=== PATIENT | male | born 1960 | race Caucasian/White ===

== ENCOUNTER 2024-12-17 14:28 | Outpatient (OUT) | payer MEDICARE, SELFPAY ==
--- NOTE | 2024-12-17 15:39 | P.CN_ITS ---
Consult Note: HPI Data of Consult Patient: new to practice Consult date: 12/17/24 Requesting Physician: Loyda Ariza MD Primary Care Provider: BENI BURT Consult Narrative Reason for consult: low back, right leg pain Narrative: 64yom who presents for evaluation. notes longstanding low back history, but recently has been significantly exacerbated. has tried various modalities, including a 6 week provider directed home exercise course, without benefit. uses tylenol 4000mg daily, with some benefit. also taking prednisone 5mg for RA. old imaging shows extensive degenerative changes and spondylosis. previously had lumbar rfa, which provided significant benefit. cc:: CC: Loyda Ariza MD Review of Systems ROS Status of ROS 10 or more systems reviewed and unremark able except as noted in history and below Exam Narrative Exam Narrative: Psych-alert and oriented x 3. Attentive and appropriate, constitutionally normal, displays normal mood and affect per situation. There are no obvious deficits in memory, reasoning, or intellect.? Skin-no obvious rashes, bruising, erythema noted to the patient's area of pain.? Extremities- extremities are warm with minimal edema and palpable pulses. Lumbar-tenderness to palpation noted in the lumbar spine and paraspinal musculature. Pain is elicited with flexion, extension, and lateral rotation of the lumbar spine. Range of motion is diminished with these motions. Facet loading maneuvers are positive. Strength-noted to be unremarkable with the exception of decreased strength rated at 4 out of 5 in right quadriceps femoris, anterior tibialis. Sensory-no notable sensory deficits in the bilateral lower extremities to touch or pinprick in all dermatomal distributions with the exception to decreased sensation to the right L4, 5 dermatomal distribution Coordination remains intact.? Gait remains non-antalgic. Assessment and Plan Assessment and Plan (1) Lumbar stenosis with neurogenic claudication: (2) Lumbar spondylosis: Plan 64yom who presents for evaluation. failed conservative measures, as noted. imaging reviewed, as noted. given symptoms and old imaging, would like to update lumbar mri without contrast. he is in agreement. meds reviewed, uds obtained. will prescribe tramadol 50mg tid prn. follow up after imaging.
== END 2024-12-17 14:29 | disposition home or self-care (01) ==
PROVIDERS: PCP Internal Medicine; Visit Provider Anesthesiology
DX: M48.062 Spinal stenosis, lumbar region with neurogenic claudication (principal); M47.816 Spondylosis without myelopathy or radiculopathy, lumbar region
CPT/HCPCS: G0463

== ENCOUNTER 2024-12-26 09:22 | Outpatient (OUT) | payer MEDICARE, SELFPAY ==
--- NOTE | 2024-12-26 | MR_ITS ---
[address] [address] Patient Name: TOM HENRIQUEZ MRN: [id number] date: 1960 Sex: M Assigned Patient Location: MRI Current Patient Location: PM Accession/Order Number: [id number] Exam Date: 12/26/2024 14:51 Report Date: 12/26/2024 16:21 At the request of: SELINA ROSSI MD Procedure: MR lumbar spine wo con EXAMINATION: MRI LUMBAR SPINE WITHOUT IV CONTRAST CLINICAL HISTORY: Chronic back pain radiating into right leg for 3 months COMPARISON: None TECHNIQUE: Multiecho imaging was performed in the sagittal and axial planes without contrast administration. FINDINGS: Vertebral heights appear maintained. Presumed hemangioma L1 vertebral body. Diffuse disc desiccation. Spinal cord terminates in normal position without abnormal cord signal. No paraspinal mass. Visualized retroperitoneum demonstrates no acute process. At L1-L2: No posterior disc pathology. No neural canal or foraminal stenosis. At L2-L3: No posterior disc pathology. No neural canal or foraminal stenosis. At L3-L4: No posterior disc pathology. No neural canal or foraminal stenosis. At L4-L5: Mild broad-based disc bulge is present malignant flavum hypertrophy and facet joint degenerative changes causing mild canal and bilateral neural foraminal stenosis. At L5-S1: Diffuse broad-based disc bulge eccentric towards the right causing mild canal and severe right-sided neural foraminal stenosis. MR/MR lumbar spine wo con IMPRESSION: Multilevel degenerative disc disease as described above, worst at L5-S1 with severe right-sided neural foraminal stenosis. Impression dictated by: Dennys Torres Jr. DMeghna 12/26/2024 4:21 PM Dictation Location: [place] [address] Electronically authenticated by: [id number] Y Date: 12/26/2024 16:21
== END 2024-12-26 09:23 | disposition home or self-care (01) ==
LOC: MRI 09:23
PROVIDERS: PCP Internal Medicine; Visit Provider Anesthesiology
DX: M48.062 Spinal stenosis, lumbar region with neurogenic claudication (principal); M51.369 Other intervertebral disc degeneration, lumbar region without mention of lumbar back pain or lower extremity pain
CPT/HCPCS: 72148

== ENCOUNTER 2025-01-16 09:27 | Outpatient (OUT) | payer MEDICARE, SELFPAY ==
--- OUTSIDE RECORDS SUMMARY | 2025-01-16 09:30 | XMS_ITS | Encounter Summary ---
Author Organization [email or web address] Address [id number] [address] [place] [address] Care Team Providers Care Airborne Mission Systems Superintendent Name Role Phone Mitchel Henderson MD Primary Care Provider [phone] Reason for Visit * Reason Comments Med Refill Encounter Details Date Type Department Care Team (Late st Contact Info) Description 01/17/2024 Refill [facility] [address] [place] [address] 1 [place] [address] Mitchel Henderson MD [address] [place] [address], 1 [place], [place] [phone] Social History Tobacco Use Types Packs/Day Years Used Date Smoking Tobacco: Every Day Cigarettes Smokeless Tobacco: Never Alcohol Use Standard Drinks/Week Comments Yes 0 (1 standard drink = 0.6 oz pur e alcohol) occassional Social Connection and Isolation Panel [NHANES] A nswer Date Recorded In a typical week, how many times do you talk on the phone with family, friends, or neighbors? Once a week 09/25/2022 How often do you get together with friends or re latives? Once a week 09/25/2022 How often do you attend alevism or presybeterian serv ices? Never 09/25/2022 Do you belong to any clubs o r organizations such as alevism groups, unions, fraternal or athletic groups, or school groups? No 09/25/2022 How often do you attend meet ings of the clubs or organizations you belong to? Never 09/25/2022 Are you , , di vorced, , never , or living with a partner? 09/25/2022 AUDIT-C Answer Date Recorded Q1: How often do you have a drink containing alc ohol? 2-4 times a month 09/25/2022 Q2: How many drinks containi ng alcohol do you have on a typical day when you are drinking? 3 or 4 09/25/2022 Q3: How often do you have si x or more drinks on one occasion? Monthly 09/25/2022 Overall Financial Resource Strain (CARDIA) Answe r Date Recorded How hard is it for you to pa y for the very basics like food, housing, medical care, and heating? Somewhat hard 09/25/2022 PHQ-2 Answer Date Recorded Total Score 8 02/28/2023 [facility] [place] of Occupat ional Health - Occupational Stress Questionnaire Answer Date Recorded Do you feel stress - tense, restless, nervous, or anxious, or unable to sleep at night because your mind is troubled all the time - these days? Only a little 09/25/2022 Exercise Vital Sign Answer Date Recorde d On average, how many days pe r week do you engage in moderate to strenuous exercise (like a brisk walk)? Patient declined On average, how many minutes do you engage in exercise at this level? Patient declined 09/25/2022 PRAPARE - Transportation Answer Date Re corded In the past 12 months, has l ack of transportation kept you from medical appointments or from getting medications? No 11/2022 In the past 12 months, has l ack of transportation kept you from meetings, work, or from getting things needed for daily living? No 09/25/2022 Housing Instability Answer Date Recorde d Are you worried or concerned that in the next two months you may not have stable housing that you own, rent or stay in as a part of a household? No 09/25/2022 Childcare Answer Date Recorded Do problems getting child ca re make it difficult for you to work or study? No 09/25/2022 Employment Answer Date Recorded Do you need help finding a l ocal career center and/or a training program? No 09/25/2022 Hunger Screening Answer Date Recorded Within the past 12 months we worried whether our food would run out before we got money to buy more. Never True 02/28/2023 Within the past 12 months th e food we bought just didn't last and we didn't have money to get more. Never True 02/28/2023 Purpose - Life Answer Date Recorded I have a purpose and direction in my life. Agree 09/11/2021 Education Answer Date Recorded What is the highest level of school you have completed or the highest degree you have received? 11th grade 09/11/2021 Sex and Gender Information Value Date Recorded Sex Assigned at Male 10/14/2019 7:09 AM EST Legal Sex Male 1:03 PM EDT Gender Identity Male 10/14/2019 7:09 AM EST Sexual Orientation Straight 10/14/2019 7: 09 AM EST documented as of this encounter Miscellaneous Notes * Telephone Encounter - Faiza Benz CMA - 01/17/2024 4:09 PM EDT duplicate documented in this encounter Plan of Treatment Upcoming Encounters Date Type Department Care Team (Late st Contact Info) Description 04/05/2025 9:30 AM EDT Office Visit [facility] [address] [place] [address] [address] [place] [phone] Mitchel Henderson MD [address] [place] [address], [address] [place], [place] [id number] documented as of this encounter Visit Diagnoses Not on filedocumented in this encounter Additional Health Concerns Assessment Noted Time PHQ-9 Depression Total Score: 8 02/29/20 23 8:00 AM EDT documented as of this encounter Care Teams Airborne Mission Systems Superintendent Relationship Specialty Start Date End Date Mitchel Henderson MD [address] [place] [address], [address] [place] [address] PCP - General Pediatrics 09/18/21 documented as of this encounter
--- OUTSIDE RECORDS SUMMARY | 2025-01-16 09:30 | XMS_ITS | Clinical Summary ---
Author Organization [facility] Address [id number] [address] [place] [address] Care Team Providers Care Salary Manager Name Role Phone Mitchel Henderson MD Primary Care Provider [phone] Allergies Active Allergy Reactions Criticality Noted Date Comments Atorvastatin muscle cramps Medium 12/10/2024 Bupropion Hcl Rash Low 09/25/2012 Buspirone 07/06/2019 Can't remember Methotrexate Other (See Comments) ,GI Disturbance 09/25/2012 [place] spaced out dizziness Oxycodone 05/28/2020 Tunnel vision Venlafaxine 10/17/2019 Medications etanercept (ENBREL) 50 mg/mL (1 mL) injection Inject 1 mL (50 mg total) under the skin once a week. Active blood sugar diagnostic (glucose blood) strip 1 strip by other route every morning before breakfast. In Vitro strip Active MEN'S MULTI-VITAMIN ORAL Take by mouth in the morning. Active hydroCHLOROthiaz anrel (HYDRODIURIL) 12.5 mg tablet Take 1 tablet (12.5 mg total) by mouth daily. 90 tablet 3 4 Active lisinopriL (PRINIVIL,ZESTRI L) 30 mg tablet Take 1 tablet (30 mg total) by mouth in the morning. 90 tablet 3 4 Active metFORMIN XR (GLUCOPHAGE XR) 500 mg 24 hr tablet Take 1 tablet (500 mg total) by mouth daily with breakfast. 90 tablet 3 4 Active albuterol (PROVENTIL HFA;VENTOLIN HFA) 90 mcg/actuation inhalerIndicatio ns:Chronic bronchitis, unspecified chronic bronchitis type (CMS-HCC) 2 puffs by mouth every 6 hours per wheezing and shortness of breath 54 g 3 4 Active umeclidinium (INCRUSE ELLIPTA) 62.5 mcg/actuation blister with deviceIndication s:Chronic bronchitis, unspecified chronic bronchitis type ([facility]) Inhale 1 puff in the morning. 30 each 6 4 Active cyclobenzaprine (FLEXERIL) 5 mg tablet Take 1 tablet (5 mg total) by mouth as needed. 5 Active ergocalciferol (DRISDOL) 1,250 mcg (50,000 unit) capsule TAKE 1 CAPSULE BY MOUTH ON MONDAYS AND THURSDAYS FOR 8 WEEKS THEN DECREASE TO ONE WEEKLY THEREAFTER Active leflunomide (ARAVA) 20 mg tablet TAKE 1 TABLET BY MOUTH DAILY WITH FOOD. DO NOT TAKE IF ON ANTIBIOTICS OR . 5 Active varenicline tartrate (CHANTIX BRINDA) 0.5 mg (11)- 1 mg (42) tabletIndication s:Cigarette nicotine dependence without complication Take 0.5 mg one daily on days 1-3 and 0.5 mg twice daily on days 4-7. Then 1 mg twice daily for a total of 12 weeks. 53 tablet 5 Active Active Problems Problem Noted Date Diagnosed Date Chronic middle ear effusion, bilateral 0 Bilateral hearing loss 09/26/2019 Hypertension COPD (chronic obstructive pulmonary disease) Overview (02/26/2022): scheduled for PFT 05/14/2020 Rheumatoid arthritis Hyperlipidemia Type 2 diabetes mellitus wit hout complication, without long-term current use of insulin Sialadenitis Encounters Date Type Department Care Team Description 12/27/2024 Orders Only [facility] [address] [place] [phone] External, Scanning Provider 12/10/2024 10:45 AM EDT Office Visit [facility] [address] [place] [phone] Mitchel Henderson MD Rheumatoid arthritis ([facility]) (Primary Dx); Type 2 diabetes mellitus without complication, without long-term current use of insulin ([facility]); Myalgia, multiple sites; Cigarette nicotine dependence without complication 12/08/2024 Travel from Last 3 Months Immunizations Immunization Administration Dates Next Due Influenza, Im Trivalent Preservative 08/08/2015, 06/02/2012,07/12/2011 Influenza, Injectable, quadr ivalent (PF) 06/09/2021,06/11/2020,09/04/2018,2017,07/01/2017 PPD Test 05/09/2024 Pneumococcal Conjugate 13-Valent 02/03/2015 Tdap 06/02/2012 Family History Medical History Relation Name Comments Arthritis Father katie Asthma Father katie Emphysema Father katie Arthritis Mother hayden Diabetes Mother hayden Hypertension Mother hayden Stroke Mother hayden Vasculitis Mother hayden Vision loss Mother hayden Arthritis Sister sera Relation Name Status Comments Father katie Mother hayden Sister sera Alive Social History Tobacco Use Types Packs/Day Years Used Date Smoking Tobacco: Every Day Cigarettes 1.6 46.4 Started: 08/22/1978 Smokeless Tobacco: Never Tobacco Cessation:Ready to Q uit: Not Asked; Counseling Given: Not Answered Alcohol Use Standard Drinks/Week Comments Yes 0 [...] week 09/25/2022 How often do you attend congregation or latter-day serv ices? Never 09/25/2022 Do you belong to any clubs o r organizations such as congregation groups, unions, fraternal or athletic groups, or [...] like food, housing, medical care, and heating? Not very hard 05/05/2024 PHQ-2 Answer Date Recorded Total Score 4 03/01/2024 [facility] of Occupat ional [facility] - Occupational Stress Questionnaire Answer Date Recorded [...] medical appointments or from getting medications? No 04/22 In the past 12 months, has l ack of transportation kept you from meetings, work, or from getting things needed for daily living? No 05/05/2024 Housing Instability Answer Date Recorde d Are you worried or concerned that in the next two months you may not have stable housing that you own, rent or stay in as a part of a household? No 05/05/2024 Childcare Answer Date Recorded Do problems getting child ca re make it difficult for you to work or study? No 09/25/2022 Employment Answer Date Recorded Do you need help finding a l al career center and/or a training program? No 09/25/2022 Hunger Screening Answer Date Recorded Within the past 12 months we worried whether our food would run out before we got money to buy more. Never True 05/05/2024 Within the past 12 months th e food we bought just didn't last and we didn't have money to get more. Never True 05/05/2024 Purpose - Life Answer Date Recorded I [...] Orientation Straight 10/14/2019 7: 09 AM EST Last Filed Vital Signs Vital Sign Reading Time Taken Comments Blood Pressure 174/92 12/10/2024 10:38 AM EDT Pulse 90 12/10/2024 10:38 AM EDT Temperature 37.6 C (99.7 F) 10/14/2020 9:07 AM EST Respiratory Rate 22 10/14/2020 10:15 AM EST Oxygen Saturation 92% 10/14/2020 10:15 AM EST Inhaled Oxygen Concentration - - Weight 99.2 kg (218 lb 9.6 oz) 12/10/2024 10:38 AM EDT Height 170.2 cm (5' 7 ) 03/01/2024 8:46 AM EDT Body Mass Index 34.24 03/01/2024 8:46 AM EDT Plan of Treatment Upcoming Encounters Date Type Department Care Team (Late st Contact Info) Description 04/05/2025 9:30 AM EDT Office Visit [facility] [address] [place] [phone] Mitchel Henderson MD [address] [place] [address], [address] [place] [phone] Health Maintenance Due Date Last Done Comments Diabetic Ophthalmology Exam 1960 Tobacco Counseling 1960 Adult BMI Follow Up Plan 1978 Diabetic Foot Exam 1978 Zoster (Shingles) Vaccine (1 of 2) 2010 DTaP,Tdap and Td Vaccines (2 - Td or Tdap) 06/02/2022 06/02/2012 COVID-19 Vaccine (2023-2 5 season) 2024 06/19/2021, 11/28/2020, 10/31/2020 Depression Screening 03/01/2025 03/01/2024 Influenza Vaccine 04/22/2025 06/09/2021, , 09/04/2018, Additional history exists Adult BMI Screening 12/10/2025 12/10/2024 Tobacco Screening 12/10/2025 12/10/2024 Medical Devices Implanted Type Area Auto Air Conditioning Mechanic Device Identifier Shelf Expiration Date Model / Serial / Lot Anch Sut Kntls Healicoil Rg St - Sna - [id number] Implanted:Qt y: 1 on 05/28/2020 by Curry Pradhan DO at [facility] [place] Left: Shoulder [employer] 02/05/2023 [id number] / [id number] / [id number] Mesh Srg Clgn Rcnst Scfld Med - Sna - [id number] Implanted:Qt y: 1 on 05/28/2020 by Curry Pradhan DO at [facility] Mesh Left: Shoulder [employer] 10/17/2022 [id number] / NA / [id number] Anch Bn 3 W Ascp Dlv Sys - Sna - [id number] Implanted:Qt y: 1 on 05/28/2020 by Curry Pradhan DO at [facility] Other Implant Left: Shoulder [employer] 08/06/2022 [id number] / NA / [id number] Anch Sut Tndn Rgnrt - Sna - [id number] Implanted:Qt y: 1 on 05/28/2020 by Curry Pradhan DO at [facility] Other Implant Left: Shoulder [employer] [id number] 09/28/2022 [id number] / NA / [id number] Ultratape Blue, 38 Implanted:Qt y: 1 on 05/28/2020 by Curry Pradhan DO at [facility] Left: Shoulder [employer] [id number] 02/22/2024 [id number] / [id number] / [id number] Procedures Procedure Name Priority Date/Time Associated Diagnosis Comments MR LUMBAR SPINE WO CONT Routine 12/26/2024 from Last 3 Months Results * MR lumbar spine without contrast (12/26/2024) Anatomical Region Laterality Modality MSK, Neuro, Spine, L-spine, Spine Covera N/A Magnetic Resonance 12/26/2024 us Scanning Provider External IMG MRI ORDERABLES Fi nal Result from Last 3 Months Insurance [employer] MEDICARE Care Teams Salary Manager Relationship Specialty Start Date End Date Mitchel Henderson MD [address] [place] [address], [address] [place] [address] PCP - General Pediatrics 09/18/21
--- OUTSIDE RECORDS SUMMARY | 2025-01-16 09:30 | XMS_ITS | Encounter Summary ---
Author Organization [employer] Address [id number] [address] [place] [address] Care Team Providers Care Answering Service Agent Name Role Phone Mitchel Henderson MD Primary Care Provider [phone] Reason for Visit * Reason Comments Med Refill Encounter Details Date Type Department Care Team (Late st Contact Info) Description 10/18/2023 Refill [facility] [address] [place] [address] 1 [place] [address] Mitchel Henderson MD [address] [place] [address], 1 [place], [place] [phone] Social History Tobacco Use Types Packs/Day Years [...] week 09/25/2022 How often do you attend yazidism or mormonism serv ices? Never 09/25/2022 Do you belong to any clubs o r organizations such as yazidism groups, unions, fraternal or athletic groups, or [...] Answer Date Recorded Total Score 8 02/28/2023 [facility] [place] of Occupat ional Health - Occupational Stress [...] Telephone Encounter - Faiza Benz CMA - 10/18/2023 4:17 PM EST duplicate documented in this encounter Plan of Treatment Upcoming Encounters Date Type Department Care Team (Late st Contact Info) Description 04/05/2025 9:30 AM EDT Office Visit [facility] [address] [place] [address] [address] [place] [phone] Mitchel Henderson MD [address] [place] [address], [address] [place] [address] documented as of this encounter Visit Diagnoses Not on filedocumented in this encounter Additional Health Concerns Assessment Noted Time PHQ-9 Depression Total Score: 8 02/29/20 23 8:00 AM EDT documented as of this encounter Care Teams Answering Service Agent Relationship Specialty Start Date End Date Mitchel Henderson MD [address] [place] [address], [address] [place] [address] PCP - General Pediatrics 09/18/21 documented as of this encounter
--- OUTSIDE RECORDS SUMMARY | 2025-01-16 09:30 | XMS_ITS | Encounter Summary ---
Author Organization [facility] Address [address] [place] [id number] Care Team Providers Care Frame Bander Name Role Phone Mitchel Henderson MD Primary Care Provider + Source Comments In the event this information is protected by the Federal Confidentiality of Alcohol and Drug AbusePatient Records regulations: The Federal rules restrict any use of the information to criminally investigate or prosecute any alcohol or drug abuse patient.[facility] Encounter Details Date Type Department Care Team (Late st Contact Info) Description 04/24/2024 Patient Msg Rheumatology [address] [place], [place] [phone] Rosy Raya MD [address] [place], [place] [phone] Appointment Request Social History Tobacco Use Types Packs/Day Years Used Date Smoking Tobacco: Every Day Smokeless Tobacco: Never Comments:down to 3-4 cigaret reinaldo a day Alcohol Use Standard Drinks/Week Comments Not Asked 0 (1 standard drink = 0.6 oz pur e alcohol) PHQ-2 Answer Date Recorded PHQ-2 score 1 05/06/2023 Area Deprivation Index Answer Date Homer rded National Score (1-100), lower number is lower ri 63 05/09/2023 State Score (1-10), lower number is lower risk 4 05/09/2023 Data from: https://www.neighborhoodatlas.medicine.[facility].edu/. Last address used for calculation [address] 05/09/2023 Sex and Gender Information Value Date Recorded Sex Assigned at Not on file Legal Sex Male 11:05 AM EST Gender Identity Not on file Sexual Orientation Not on file documented as of this encounter Functional Status * Are you deaf or do you have serious difficulty hearing? Answer Date of Assessment Author No 02/13/2015 2:15 PM EDT Estela Kwan Ma * Are you blind or do you have serious difficulty seeing, even when wearing glasses? Answer Date of Assessment Author No 02/13/2015 2:15 PM EDT Estela Kwan Ma * Do you have serious difficulty walking or climbing stairs? Answer Date of Assessment Author Yes 02/13/2015 2:15 PM EDT Estela Kwan Ma * Do you have difficulty dressing or bathing? Answer Date of Assessment Author No 02/13/2015 2:15 PM EDT Esteal Kwan Ma * Because of a physical, mental, or emotional condition, do you have difficulty doing errands alone such as visiting a doctor's office or shopping? Answer Date of Assessment Author No 02/13/2015 2:15 PM EDT Estela Kwan Ma documented as of this encounter Mental Status * Because of a physical, mental, or emotional condition, do you have serious difficulty concentrating, remembering, or making decisions? Answer Entry Date Author No 02/13/2015 2:15 PM EDT Estela Kwan Ma documented in this encounter Plan of Treatment Not on file documented as of this encounter Visit Diagnoses Not on filedocumented in this encounter Care Teams Frame Bander Relationship Specialty Start Date End Date Mitchel Henderson MD [address] [place] [address], 1 [place] [address] PCP - General Internal Medicine 11/30/21 documented as of this encounter
--- OUTSIDE RECORDS SUMMARY | 2025-01-16 09:30 | XMS_ITS | Encounter Summary ---
Author Organization [facility] Address [address] [place] [address] Care Team Providers Care Scheduler Maintenance Name Role Phone Mitchel Henderson MD Primary Care Provider + Source Comments In the event this information is protected by the Federal Confidentiality of Alcohol and Drug AbusePatient Records regulations: The Federal rules restrict any use of the information to criminally investigate or prosecute any alcohol or drug abuse patient.[facility] Encounter Details Date Type Department Care Team (Late st Contact Info) Description 04/24/2024 Patient Msg Rheumatology [address] [place], [place] [phone] Rosy Raya MD [address] [place], [place] [phone] Appointment Request Social History Tobacco Use Types [...] is lower risk 4 05/09/2023 Data from: https://www.neighborhoodatlas.medicine.[facility].edu/. Last address used for calculation [address] [...] 2:15 PM EDT Estela Kwan Ma * Because of a physical, [...] on filedocumented in this encounter Care Teams Scheduler Maintenance Relationship Specialty Start Date End Date Mitchel Henderson MD [address] [place] [address], 1 [place] [address] PCP - General Internal Medicine 11/30/21 documented as of this encounter
--- OUTSIDE RECORDS SUMMARY | 2025-01-16 09:30 | XMS_ITS | Encounter Summary ---
Author Organization [employer] [facility] [employer] Address [id number] [address] [place] [address] Care Team Providers Care Pulp Mill Operator Name Role Phone Mitchel Henderson MD Primary Care Provider [phone] Reason for Visit * Reason Comments Med Refill Encounter Details Date Type Department Care Team (Late st Contact Info) Description 03/23/2024 Refill [facility] [address] [place] [address] 1 [place] [address] Mitchel Henderson MD [address] [place] [address], [address] [place], [place] [address] Social History Tobacco Use Types Packs/Day Years [...] week 09/25/2022 How often do you attend jehovah's witness or anabaptist serv ices? Never 09/25/2022 Do you belong to any clubs o r organizations such as jehovah's witness groups, unions, fraternal or athletic groups, or [...] 09/25/2022 PHQ-2 Answer Date Recorded Total Score 4 03/01/2024 [facility] of Occupat ional Health - Occupational Stress [...] got money to buy more. Never True 03/01/2024 Within the past 12 months th e food we bought just didn't last and we didn't have money to get more. Never True 03/01/2024 Purpose - Life Answer Date Recorded I [...] Telephone Encounter - Faiza Benz CMA - 03/23/2024 11:12 AM EDT Too soon to refill documented in this encounter Plan of Treatment Upcoming Encounters Date Type Department Care Team (Late st Contact Info) Description 04/05/2025 9:30 AM EDT Office Visit [facility] [address] [place] [address] [address] [place] [phone] Mitchel Henderson MD [address] [place] [address], [address] [place], [place] [phone] documented as of this encounter Visit Diagnoses Not on filedocumented in this encounter Additional Health Concerns Assessment Noted Time PHQ-9 Depression Total Score: 4 03/01/20 24 8:00 AM EDT documented as of this encounter Care Teams Pulp Mill Operator Relationship Specialty Start Date End Date Mitchel Henderson MD [address] [place] [address], [address] [place] [address] PCP - General Pediatrics 09/18/21 documented as of this encounter
--- OUTSIDE RECORDS SUMMARY | 2025-01-16 09:30 | XMS_ITS | Encounter Summary ---
Author Organization [facility] Address [id number] [address] [place] [address] Care Team Providers Care Auriculotherapist Name Role Phone Mitchel Henderson MD Primary Care Provider [phone] Encounter Details Date Type Department Care Team (Late st Contact Info) Description 12/27/2024 Orders Only [facility] [address] [place] [address] External, Scanning Provider Social History Tobacco Use Types Packs/Day Years Used Date Smoking Tobacco: Every Day Cigarettes 1.6 46.4 Started: 08/22/1978 Smokeless Tobacco: Never Alcohol Use Standard Drinks/Week [...] week 09/25/2022 How often do you attend orthodoxy or church serv ices? Never 09/25/2022 Do you belong to any clubs o r organizations such as orthodoxy groups, unions, fraternal or athletic groups, or [...] Answer Date Recorded Total Score 4 03/01/2024 [facility] of Occupat ional Health - Occupational Stress [...] Recorded Do you need help finding a [facility] career center and/or a training program? No [...] AM EST documented as of this encounter Plan of Treatment Upcoming Encounters Date Type Department Care Team (Late st Contact Info) Description 04/05/2025 9:30 AM EDT Office Visit [facility] [address] [place] [address] [address] [place] [phone] Mitchel Henderson MD [address] [place] [address], [address] [place] [address] documented as of this encounter Procedures Procedure Name Priority Date/Time Associated Diagnosis Comments MR LUMBAR SPINE WO CONT Routine 12/26/2024 documented in this encounter Results * MR lumbar spine without contrast (12/26/2024) Anatomical Region Laterality Modality MSK, Neuro, Spine, L-spine, Spine Covera N/A Magnetic Resonance 12/26/2024 us Scanning Provider External IMG MRI ORDERABLES Fi nal Result documented in this encounter Visit Diagnoses Not on filedocumented in this encounter Additional Health Concerns Assessment Noted Time PHQ-9 Depression Total Score: 4 03/01/20 24 8:00 AM EDT documented as of this encounter Care Teams Auriculotherapist Relationship Specialty Start Date End Date Mitchel Henderson MD [address] [place] [address], [address] [place] [address] PCP - General Pediatrics 09/18/21 documented as of this encounter
--- OUTSIDE RECORDS SUMMARY | 2025-01-16 09:30 | XMS_ITS | Clinical Summary ---
Author Organization [facility] Address [address] [place] [address] Care Team Providers Care Order Make Up Clerk Name Role Phone Mitchel Henderson MD Primary Care Provider [phone] Allergies Active Allergy Reactions Criticality Noted Date Comments Bupropion Rash Low 09/25/2012 Other Reaction(s): hives Buspirone 09/25/2012 Other Reaction(s): Unknown Can't remember Methotrexate GI intolerance,Unknown 09/25/2012 Other Reaction(s): Other (See Comments) Pearsall spaced out dizziness dizziness Oxycodone 05/28/2020 Tunnel vision Venlafaxine 09/25/2012 Other Reaction(s): Other: See Comments unknown Medications albuterol HFA 90 mcg/act inhaler Inhale 2 puffs every 6 (six) hours if needed. 02/28/2023 Active atorvastatin (Lipitor) 20 MG tablet 1 (one) time each day at the same time. Active cyclobenzaprine (Flexeril) 5 MG tablet Take 5 mg by mouth as needed at bedtime. Active Jardiance 10 MG Take one(1) tablet daily. 03/08/2023 Active hydroCHLOROthiaz arnel (HYDRODiuril) 25 MG tablet 1 (one) time each day at the same time. Active lisinopril 30 MG tablet Take 30 mg by mouth in the morning. 02/28/2023 Active etanercept (Enbrel) 50 MG/ML injection Inject under the skin. Active Active Problems Problem Noted Date Diagnosed Date Hyperlipidemia 06/15/2023 COPD (chronic obstructive pulmonary disease) Overview (06/15/2023): scheduled for PFT 05/14/2020 Rheumatoid arthritis 06/15/2023 Type 2 diabetes mellitus wit hout complication, without long-term current use of insulin 06/15/2023 Cigarette nicotine dependence without complicati on 03/17/2017 Essential hypertension 10/30/2015 Hearing loss 06/20/2015 Immunizations Immunization Administration Dates Next Due Influenza, injectable, quadr ivalent, preservative free 06/09/2021,06/11/2020,09/04/2018,07/12,07/01/2017 Influenza, seasonal, injectable 08/08/2015,06/02,07/12/2011 Pneumococcal Conjugate PCV 13 02/03/2015 Pneumococcal Polysaccharide PPSV23 07/02/2019 Tdap 06/02/2012 Family History Medical History Relation Name Comments Diabetes Mother Hypertension Mother Osteoarthritis Mother Stroke Mother Diabetes Sibling Heart disease Sibling Hypertension Sibling Relation Name Status Comments Father Mother Sibling Social History Tobacco Use Types Packs/Day Years Used Date Smoking Tobacco: Every Day Cigarettes 0.5 15 Smokeless Tobacco: Never Tobacco Cessation:Ready to Q uit: Not Asked; Counseling Given: Not Answered Alcohol Use Standard Drinks/Week Comments Yes 0 (1 standard drink = 0.6 oz pur e alcohol) Sex and Gender Information Value Date Recorded Sex Assigned at Male 06/13/2023 10:45 AM EDT Legal Sex Male 6:39 PM EDT Gender Identity Male 06/13/2023 10:45 AM EDT Sexual Orientation Straight 06/13/2023 10 :45 AM EDT Last Filed Vital Signs Vital Sign Reading Time Taken Comments Blood Pressure 176/95 11/17/2022 12:00 PM EDT Pulse - - Temperature - - Respiratory Rate - - Oxygen Saturation - - Inhaled Oxygen Concentration - - Weight 98.4 kg (217 lb) 06/16/2023 9:02 AM EDT Height 171.5 cm (5' 7.5 ) 06/16/2023 9:02 AM EDT Body Mass Index 33.49 06/16/2023 9:02 AM EDT Plan of Treatment Health Maintenance Due Date Last Done Comments CT Colonography 1960 Colonoscopy 1960 Colorectal Cancer Screening 1960 FIT-DNA 1960 FIT 1960 FOBT 1960 Sigmoidoscopy 1960 Influenza Vaccine (Season Ended) 2025 06/09/2021, 06/11/2020, 09/04/2018, Additional history exists Insurance [employer] MED[employer]ARE Care Teams Order Make Up Clerk Relationship Specialty Start Date End Date Mitchel Henderson MD PCP - General Family Medicine 06/15/23
--- OUTSIDE RECORDS SUMMARY | 2025-01-16 09:30 | XMS_ITS | Encounter Summary ---
Author Organization [facility] Address [address] [place] [address] Care Team Providers Care Field Services Manager Name Role Phone Mitchel Henderson MD Primary Care Provider [phone] Encounter Details Date Type Department Care Team (Late st Contact Info) Description 09/01/2023 Abstract [facility] [address] [place] [id number] Magalys Hahn NP Social History Tobacco Use Types Packs/Day Years [...] Orientation Straight 06/13/2023 10 :45 AM EDT documented as of this encounter Plan of Treatment Not on file documented as of this encounter Visit Diagnoses Not on filedocumented in this encounter Care Teams Field Services Manager Relationship Specialty Start Date End Date Mitchel Henderson MD PCP - General Family Medicine 06/15/23 documented as of this encounter
--- OUTSIDE RECORDS SUMMARY | 2025-01-16 09:30 | XMS_ITS | Encounter Summary ---
Author Organization [employer] Address [facility] [id number] [address] [place] [address] Care Team Providers Care Circular Distributor Name Role Phone Mitchel Henderson MD Primary Care Provider [phone] Reason for Visit * Reason Comments Med Refill Encounter Details Date Type Department Care Team (Late st Contact Info) Description 03/26/2024 Refill [facility] [address] [place] [address] 1 [place] [address] Mitchel Henderson MD [address] [place] [address], [address] [place], [place] [phone] Chronic bronchitis, unspecified chronic bronchitis type ([facility]-HCC) Social History Tobacco Use Types Packs/Day Years Used Date Smoking Tobacco: Every Day Cigarettes 1.6 46.4 Started: 08/1978 Smokeless Tobacco: Never Alcohol Use Standard Drinks/Week [...] week 09/25/2022 How often do you attend yarsanism or mormon serv ices? Never 09/25/2022 Do you belong to any clubs o r organizations such as yarsanism groups, unions, fraternal or athletic groups, or [...] Answer Date Recorded Total Score 4 03/01/2024 [facility] of Occupat ional Health - Occupational [...] Recorded Do you need help finding a [facility] career center and/or a training program? No [...] Telephone Encounter - Faiza Benz CMA - 03/26/2024 11:26 AM EDT duplicate documented in this encounter Plan of Treatment Upcoming Encounters Date Type Department Care Team (Late st Contact Info) Description 04/05/2025 9:30 AM EDT Office Visit [facility] [address] [place] [address] [address] [place] [address] Mitchel Henderson MD [address] [place] [address], [address] [place], [place] [phone] documented as of this encounter Visit Diagnoses Diagnosis Chronic bronchitis, unspecified chronic bronchitis type ([facility]-HCC) documented in this encounter Additional Health Concerns Assessment Noted Time PHQ-9 Depression Total Score: 4 03/01/20 24 8:00 AM EDT documented as of this encounter Care Teams Circular Distributor Relationship Specialty Start Date End Date Mitchel Henderson MD [address] [place] [address], [address] [place], [place] [phone] PCP - General Pediatrics 09/18/21 documented as of this encounter
--- OUTSIDE RECORDS SUMMARY | 2025-01-16 09:30 | XMS_ITS | Encounter Summary ---
Author Organization [facility] Address [address] [place] [address] Care Team Providers Care Manager Public Name Role Phone Mitchel Henderson MD Primary Care Provider + Source Comments In the event this information is protected by the Federal Confidentiality of Alcohol and Drug AbusePatient Records regulations: The Federal rules restrict any use of the information to criminally investigate or prosecute any alcohol or drug abuse patient.[facility] Reason for Visit * Reason Comments Refill Request Encounter Details Date Type Department Care Team (Late st Contact Info) Description 11/13/2024 Refill Rheumatology [address] [place] [address] Rosy Raya MD [address] [place] [address] Refill Request Social History Tobacco Use Types Packs/Day Years Used Date Smoking Tobacco: Every Day Smokeless Tobacco: Never Comments:down to 3-4 cigaret reinaldo a day Alcohol Use Standard Drinks/Week Comments Not Asked 0 (1 standard drink = 0.6 oz pur e alcohol) PHQ-2 Answer Date Recorded PHQ-2 score 2 11/13/2024 Area Deprivation Index Answer Date Homer rded National Score (1-100), lower number is lower ri 63 05/09/2023 State Score (1-10), lower number is lower risk 4 05/09/2023 Data from: https://www.neighborhoodatlas.medicine.[facility]/. Last address used for calculation [address] 05/09/2023 Sex and Gender Information [...] Date Author No 02/13/2015 2:15 PM EDT Esteal Kwan Ma documented in this encounter Miscellaneous Notes * Telephone Encounter - Melina Diaz - 11/22/2024 7:26 AM EDT Mr. Gutiérrez completed the requested labs on 11/19/24. Melina ROSE November 22, 2024 7:26 AM * Telephone Encounter - Henna Mixon - 11/15/2024 10:36 AM EDT Called and left voicemail for patient to schedule labs Mychart sent * Telephone Encounter - Rosy Raya MD - 11/14/2024 10:52 PM EDT Please call and schedule nonfasting labs this month. Temporary medication refilled Thank you. Patient's request for medication is as follows: Requested Prescriptions Pending Prescriptions Disp Refills ??? leflunomide (ARAVA) 20 mg tablet [Pharmacy Med Name: LEFLUNOMIDE 20MG TABLETS] 90 tablet 3 Sig: TAKE 1 TABLET BY MOUTH DAILY WITH FOOD. DO NOT TAKE IF ON ANTIBIOTICS OR . Prescription(s) as above. Please process accordingly. Rosy Raya MD * Telephone Encounter - Leslee Lizama MA - 11/13/2024 8:14 AM EDT Pharmacy electronically requests the following refill(s) Requested Prescriptions Pending Prescriptions Disp Refills leflunomide (ARAVA) 20 mg tablet [Pharmacy Med Name: LEFLUNOMIDE 20MG TABLETS] 90 tablet 3 Sig: TAKE 1 TABLET BY MOUTH DAILY WITH FOOD. DO NOT TAKE IF ON ANTIBIOTICS OR . Leslee Lizama MA Most recent Rheumatology visit: 04/26/2024 (with Rosy Raya) Last Bone Density on file: 04/18/2023 Rheumatology Care Team: None on file Recent Office Visits - This Specialty 04/26/2024 Rheumatoid arthritis of multiple sites without organ or system involvement with positiverheumatoid factor (HCC) Rheumatology Rosy Raya MD 11/17/2023 Rheumatoid arthritis of multiple sites without organ or system involvement with positiverheumatoid factor (HCC) Rheumatology Rosy Raya MD 05/09/2023 Rheumatoid arthritis of multiple sites without organ or system involvement with positiverheumatoid factor (HCC) Rheumatology Nilda Giron, TOOL WORKER.REPEAT CHIEF Upcoming Rheumatology Appointments - Next 365 Days Visit Type Date Time Department [facility] 11/19/2024 12:40 PM [facility] Y[facility] CBC: None on file in the last 6 months Vitamin D: None on file in the last 6 months LFT: None on file in the last 6 months Hepatic Function: Creatinine: None on file in the last 6 months ESR/CRP: None on file in the last 6 months Uric Acid: None on file in the last 6 months Open Standing (Multiple Instance) Lab Orders None Open Future (Single Instance) Lab Orders Expected Expires Ordered BLOOD TB SCREEN [SQINFTBP] 11/17/23 11/16/24 11/17/23 Auth. provider: Rosy Raya MD Assoc. diagnoses: Screening-pulmonary TB COMPREHENSIVE METABOLIC PANEL [SQCMP] 07/29/24 04/29/25 04/29/24 Auth. provider: Rosy Raya MD Assoc. diagnoses: Elevated LFTs COMPLETE BLOOD COUNT [SQCBC] 07/29/24 04/29/25 04/29/24 Auth. provider: Rosy Raya MD Assoc. diagnoses: Anemia of chronic disease SEDIMENTATION RATE, WESTERGREN [SQWSR] 07/29/24 04/29/25 04/29/24 Auth. provider: Rosy Raya MD Assoc. diagnoses: Elevated sed rate, Elevated C-reactive protein (CRP) C-REACTIVE PROTEIN [SQCRP] 07/29/24 04/29/25 04/29/24 Auth. provider: Rosy Raya MD Assoc. diagnoses: Elevated sed rate, Elevated C-reactive protein (CRP) VITAMIN D 25 HYDROXY [SQVITD] 07/29/24 04/29/25 04/29/24 Auth. provider: Rosy Raya MD Assoc. diagnoses: Vitamin D deficiency documented in this encounter Plan of Treatment Not on file documented as of this encounter Visit Diagnoses Diagnosis Rheumatoid arthritis of multiple sites without organ or system involvement with positive rheumatoid factor (HCC) documented in this encounter Care Teams Manager Public Relationship Specialty Start Date End Date Mitchel Henderson MD [address] [place] [address], [place] [address] PCP - General Internal Medicine 11/30/21 documented as of this encounter
--- OUTSIDE RECORDS SUMMARY | 2025-01-16 09:30 | XMS_ITS | Encounter Summary ---
Author Organization [facility] Address [address] [place] [address] Care Team Providers Care Optics Manufacturing Technician Name Role Phone Mitchel Henderson MD Primary Care Provider + Source Comments In the event this information is protected by the Federal Confidentiality of Alcohol and Drug AbusePatient Records regulations: The Federal rules restrict any use of the information to criminally investigate or prosecute any alcohol or drug abuse patient.[facility] Encounter Details Date Type Department Care Team (Late st Contact Info) Description 03/19/2024 Patient Msg Urology [address] [place] [address] Provider, Soren Hill to reach you Social History Tobacco Use Types Packs/Day Years Used Date Smoking Tobacco: Every Day Smokeless Tobacco: Never Comments:down to 3-4 cigaret reinaldo a day Alcohol Use Standard Drinks/Week Comments Not Asked 0 (1 standard drink = 0.6 oz pur e alcohol) PHQ-2 Answer Date Recorded PHQ-2 score 1 05/06/2023 Area Deprivation Index Answer Date Homer rded National Score (1-100), lower number is lower ri sk 63 05/09/2023 State Score (1-10), lower number is lower risk 4 05/09/2023 Data from: https://www.neighborhoodatlas.medicine.[facility]/. Last address used for calculation [address] [...] on filedocumented in this encounter Care Teams Optics Manufacturing Technician Relationship Specialty Start Date End Date Mitchel Henderson MD [address] [place] [address], [place] [address] PCP - General Internal Medicine 11/30/21 documented as of this encounter
--- OUTSIDE RECORDS SUMMARY | 2025-01-16 09:30 | XMS_ITS | Encounter Summary ---
Author Organization [facility] Address [address] [place] [address] Care Team Providers Care Rack Pusher Name Role Phone Mitchel Henderson MD Primary Care Provider + Source Comments In the event this information is protected by the Federal Confidentiality of Alcohol and Drug AbusePatient Records regulations: The Federal rules restrict any use of the information to criminally investigate or prosecute any alcohol or drug abuse patient.[facility] Encounter Details Date Type Department Care Team (Late st Contact Info) Description 04/23/2024 Patient [facility] [place] [address] Gillian Payne RPh At your next appointment, choose [facility] Social History Tobacco Use Types Packs/Day Years [...] is lower risk 4 05/09/2023 Data from: https://www.neighborhoodatlas.[facility]/. Last address used for calculation [address] [...] on filedocumented in this encounter Care Teams Rack Pusher Relationship Specialty Start Date End Date Mitchel Henderson MD [address] [place] [address], [address] [place] [address] PCP - General Internal Medicine 11/30/21 documented as of this encounter
--- OUTSIDE RECORDS SUMMARY | 2025-01-16 09:31 | XMS_ITS | Encounter Summary ---
Author Organization [facility] Address [address] [place] [address] Care Team Providers Care Fire Captain Marine Name Role Phone Leonela Silverman CNP Primary Care Provider [phone] Mitchel Henderson MD Primary Care Provider + Source Comments In the event this information is protected by the Federal Confidentiality of Alcohol and Drug AbusePatient Records regulations: The Federal rules restrict any use of the information to criminally investigate or prosecute any alcohol or drug abuse patient.[facility] Encounter Details Date Type Department Care Team (Late st Contact Info) Description 11/28/2019 Patient Msg Rheumatology [address] [facility] [place], [place] [phone] Rosy Raya MD [address] [place], [place] [id number] update Social History Tobacco Use Types Packs/Day Years Used Date Smoking Tobacco: Every Day Smokeless Tobacco: Never Comments:down to 3-4 cigaret reinaldo a day Alcohol Use Standard Drinks/Week Comments Not Asked 0 (1 standard drink = 0.6 oz pur e alcohol) PHQ-2 Answer Date Recorded PHQ-2 Score 3 07/05/2019 Sex and Gender Information Value Date Recorded Sex Assigned at Not on file Legal Sex Male 11:05 AM EST Gender Identity Not on file Sexual Orientation Not on file COVID-19 Exposure Response Date Recorded In the last month, have you been in contact with someone who was confirmed or suspected to have Coronavirus / COVID-19? No / Unsure 11/09/2019 11:03 AM EDT documented as of this encounter Functional Status [...] Assessment Author No 02/13/2015 2:15 PM EDT LobitozeynepEstela landa Ma * Because of a physical, mental, [...] on filedocumented in this encounter Care Teams Fire Captain Marine Relationship Specialty Start Date End Date Leonela Silverman CNP [address] [facility] [place], [place] [phone] PCP - General Family Medicine 06/21/19 11/29/21 Mitchel Henderson MD [address] [place] [address], [address] [place], [place] [phone] PCP - General Internal Medicine 11/30/21 documented as of this encounter"
--- OUTSIDE RECORDS SUMMARY | 2025-01-16 09:31 | XMS_ITS | Encounter Summary ---
Author Organization [facility] Address [address] [place] [address] Care Team Providers Care Manager Intelligence Name Role Phone Edgar Mendoza DO Primary Care Provider [phone] Leonela Silverman CNP Primary Care Provider [phone] Mitchel Henderson MD Primary Care Provider + Source Comments In the event this information is protected by the Federal Confidentiality of Alcohol and Drug AbusePatient Records regulations: The Federal rules restrict any use of the information to criminally investigate or prosecute any alcohol or drug abuse patient.[facility] Encounter Details Date Type Department Care Team (Late st Contact Info) Description 06/01/2016 Get Medical Advice Rheumatology [address] [place], [place] [id number] Rosy Raya MD [address] [place] [address] RE: Non-Urgent Medical Question Social History Tobacco Use Types Packs/Day Years Used Date Smoking Tobacco: Every Day Comments:down to 3-4 cigaret reinaldo a day [...] Entry Date Author No 02/13/2015 2:15 PM KALYANT Estela Kwan Ma documented in this encounter Plan of Treatment Not on file documented as of this encounter Visit Diagnoses Not on filedocumented in this encounter Care Teams Manager Intelligence Relationship Specialty Start Date End Date Edgar Mendoza DO [address] [place] [address] PCP - General Family Medicine 07/21/12 06/20/19 Leonela Silverman CNP [address] [place] [address] PCP - General Family Medicine 06/21/19 11/29/21 Mitchel Henderson MD [address] [place] [address], [address] [place] [address] PCP - General Internal Medicine 11/30/21 documented as of this encounter
--- OUTSIDE RECORDS SUMMARY | 2025-01-16 09:31 | XMS_ITS | Encounter Summary ---
Author Organization [facility] Address [address] [place] [address] Care Team Providers Care Political Reporter Name Role Phone Edgar Mendoza DO Primary Care Provider [phone] Leonela Silverman CNP Primary Care Provider [phone] Mitchel Henderson MD Primary Care Provider + Source Comments In the event this information is protected by the Federal Confidentiality of Alcohol and Drug AbusePatient Records regulations: The Federal rules restrict any use of the information to criminally investigate or prosecute any alcohol or drug abuse patient.[facility] Encounter Details Date Type Department Care Team (Late st Contact Info) Description 12/09/2015 Patient Msg Otolaryngology [address] [facility] [place] [address] Yehuda Kiran MD [address] [facility] [place] [address] RE: Appointment Cancellation Request Social History Tobacco Use Types Packs/Day [...] on filedocumented in this encounter Care Teams Political Reporter Relationship Specialty Start Date End Date Egdar Mendoza DO [address] [place] [address] PCP - General Family Medicine 07/21/12 06/20/19 Leonela Silverman CNP [address] [place] [address] PCP - General Family Medicine 06/21/19 11/29/21 Mitchel Henderson MD [address] [place] [address], [address] [place] [address] PCP - General Internal Medicine 11/30/21 documented as of this encounter
--- OUTSIDE RECORDS SUMMARY | 2025-01-16 09:31 | XMS_ITS | Encounter Summary ---
Author Organization [facility] Address [address] [place] [address] Care Team Providers Care Dike Supervisor Name Role Phone Herrera Leonela FONTAINE Primary Care Provider [phone] Mitchel Henderson MD Primary Care Provider + Source Comments In the event this information is protected by the Federal Confidentiality of Alcohol and Drug AbusePatient Records regulations: The Federal rules restrict any use of the information to criminally investigate or prosecute any alcohol or drug abuse patient.[facility] Encounter Details Date Type Department Care Team (Late st Contact Info) Description 02/10/2021 Patient Msg Rheumatology [address] [facility] [place], [place] [phone] Rosy Raya MD [address] [place] [address] results Social History Tobacco Use Types Packs/Day Years Used Date Smoking Tobacco: Every Day Smokeless Tobacco: Never Comments:down to 3-4 cigaret reinaldo a day Alcohol Use Standard Drinks/Week Comments Not Asked 0 (1 standard drink = 0.6 oz pur e alcohol) PHQ-2 Answer Date Recorded PHQ-2 score 2 11/12/2020 Area Deprivation Index Answer Date Homer rded National Score (1-100), lower number is lower ri sk Not on file 07/29/2020 State Score (1-10), lower number is lower risk N ot on file 07/29/2020 Data from: https://www.neighborhoodatlas.medicine.[facility]/. Last address used for calculation Not on file 07/29/2020 Sex and Gender Information Value Date Recorded [...] on filedocumented in this encounter Care Teams Dike Supervisor Relationship Specialty Start Date End Date Leonela Silverman CNP [address] [place] [address] PCP - General Family Medicine 06/21/19 11/29/21 Mitchel Henderson MD [address] [place] [address], [address] [place] [address] PCP - General Internal Medicine 11/30/21 documented as of this encounter
--- OUTSIDE RECORDS SUMMARY | 2025-01-16 09:31 | XMS_ITS | Clinical Summary ---
Author Organization [facility] Address [address] [place], [place] [id number] Care Team Providers Care Affiliate Manager Name Role Phone Mitchel Henderson MD Primary Care Provider + Allergies Active Allergy Reactions Criticality Noted Date Comments Buspirone Hcl Unknown 09/25/2012 Methotrexate Other: See Comments 09/25/2012 dizziness Oxycodone-Acetaminophen Other: See Comments 11/2012 Nauses and tunnel vision Venlafaxine Other: See Comments 09/25/2012 unknown Bupropion Hcl Rash 09/25/2012 Medications aspirin, enteric coated (ADULT LOW DOSE ASPIRIN) 81 mg EC tablet Take 1 tablet by mouth once daily. 0 3 Active dicyclomine (BENTYL) 20 mg tablet 1 9 Active lisinopril (ZESTRIL,PRINIVI L) 30 mg tablet Take 30 mg by mouth once daily. 1 Active albuterol HFA (PROVENTIL HFA, VENTOLIN HFA) 90 mcg/actuation inhaler Inhale 2 Puffs as instructed every 6 hours as needed. Active INCRUSE ELLIPTA 62.5 mcg/actuation inhaler INHALE 1 PUFF BY MOUTH IN THE MORNING 3 Active hydroCHLOROthiaz arnel 12.5 mg tablet Take one(1) tablet daily. 3 Active Etanercept (ENBREL SURECLICK) 50 mg/mL (1 mL)Indications:R heumatoid factor positive,Positiv e anti-CCP test,JARED positive,Rheumat oid arthritis of multiple sites without organ or system involvement with positive rheumatoid factor (HCC),Abnormal finding on imaging 50mg sq injection once a week. Hold if on antibiotics or ill 4 mL 11 4 Active ergocalciferol 50,000 unit capsule (VITAMIN D2, DRISDOL)Indicati ons:Vitamin D deficiency (take by mouth with food twice a week, ONE CAPSULE ON TUESDAY AND ONE ON TUESDAY) FOR A TOTAL OF 8 WEEKS. Then once a week thereafter. 20 capsule 1 5 Active metFORMIN ER (GLUCOPHAGE XR) 500 mg 24 hr tablet Take 500 mg by mouth. 4 Active leflunomide (ARAVA) 20 mg tabletIndication s:Rheumatoid arthritis of multiple sites without organ or system involvement with positive rheumatoid factor (HCC) TAKE 1 TABLET BY MOUTH DAILY WITH FOOD. DO NOT TAKE IF ON ANTIBIOTICS OR . 90 tablet 3 5 Active cyclobenzaprine (FLEXERIL) 5 mg tabletIndication s:Leg cramping Take 1 tablet by mouth at bedtime as needed. 90 tablet 3 5 Active predniSONE (DELTASONE) 5 mg tabletIndication s:Rheumatoid arthritis of multiple sites without organ or system involvement with positive rheumatoid factor (HCC),Elevated sed rate,Elevated C-reactive protein (CRP) Day 1=6tabs with food, Day 2=5tabs, Day 3=4tabs, Day 4=3tabs, Day 5=2tabs, Day 6=1tab, No NSAIDs on med 21 tablet 1 5 Active Active Problems Problem Noted Date Diagnosed Date Chronic pain of both knees 04/26/2024 Bilateral wrist pain 11/17/2023 Dupuytren contracture 11/17/2023 Bilateral hand pain 11/17/2023 Elevated C-reactive protein (CRP) 11/05/2022 JARED positive 11/13/2020 Vitamin B12 deficiency 11/13/2020 Hyperuricemia 11/13/2020 Bilateral carpal tunnel syndrome 06/21/2019 Numbness and tingling of right arm 12/07/2018 Numbness and tingling in left hand 12/07/2018 Ulnar deviation of finger of right hand 09/23/19 Cigarette nicotine dependence without complicati on 03/17/2017 Long-term use of high-risk medication 03/17/2017 Cervical stenosis of spine 11/01/2016 Osteoarthritis of spine with radiculopathy, cerv ical region 11/01/2016 Chronic left shoulder pain 10/29/2016 Rheumatoid nodule of right hand 12/12/2015 Synovitis of hand 10/30/2015 Cervicalgia 10/30/2015 Essential hypertension 10/30/2015 Nodule of finger of right hand 10/30/2015 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 08/01/2015 Hearing loss 06/20/2015 Chronic bilateral low back pain with right-sided sciatica 02/13/2015 Low back pain with right-sided sciatica 01/01/20 14 Gonzalez's cyst of knee 12/31/2013 Elevated sed rate 11/27/2013 Rheumatoid arthritis of mult iple sites without organ or system involvement with positive rheumatoid factor 11/26/2013 Secondary osteoarthritis of multiple sites 11/26 Elevated LFTs 03/23/2013 Vitamin D deficiency 09/27/2012 Rheumatoid factor positive 09/27/2012 Positive anti-CCP test 09/27/2012 Abnormal finding on imaging-erosions 09/27/2012 Multiple joint pain 09/25/2012 Insomnia 09/25/2012 Osteopenia 09/25/2012 Family history of rheumatoid arthritis 3 Resolved Problems Problem Noted Date Diagnosed Date Resolved Date 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 08/01/2015 08/01/2015 Encounters Date Type Department Care Team Description 11/30/2024 Refill Rheumatology [address] [place] [address] Rosy Raya MD Refill Request 11/24/2024 Telephone Rheumatology [address] [place] [address] Rosy Raya MD Results 11/19/2024 12:40 PM EDT Office Visit Rheumatology [address] [place] [address] Rosy Raya MD Rheumatoid arthritis of multiple sites without organ or system involvement with positive rheumatoid factor (HCC) (Primary Dx); Elevated LFTs; Anemia of chronic disease; Elevated sed rate; Elevated C-reactive protein (CRP); Vitamin D deficiency; HyperCKemia; Elevated aldolase level; Leg cramping; JARED positive; Positive anti-CCP test; Secondary osteoarthritis of multiple sites; Long-term use of high-risk medication; Family history of rheumatoid arthritis; Ulnar deviation of finger of right hand; Rheumatoid nodule of right hand (HCC); Synovitis of hand; Cervical stenosis of spine; Bilateral hand pain; Bilateral wrist pain; Chronic pain of both knees; Chronic pain of both shoulders; Dupuytren contracture 11/13/2024 Travel 11/13/2024 Refill Rheumatology [address] [place] [address] Rosy Raya MD Refill Request from Last 3 Months Immunizations Immunization Administration Dates Next Due COVID-19 original vaccine, f ull dose, monovalent (MODERNA) 11/28/2020,10/31/2020 influenza (IIV3) vaccine, tr ivalent (AFLURIA, FLULAVAL, FLUVIRIN, FLUZONE) 08/08/2015,06/02/2012,07/12/2011 influenza (IIV4) vaccine, ag e 6 mo - 64 yr, quadrivalent, PF (AFLURIA, FLUARIX, FLULAVAL, FLUZONE) 06/09/2021,06/11/2020,09/04/2018,2017,07/01/2017 pneumococcal conjugate (PCV1 3) vaccine, 13 valent (PREVNAR 13) 02/03/2015 tetanus diphtheria pertussis (Tdap) vaccine, age 7+ yr (ADACEL, BOOSTRIX) 06/02/2012 Family History Medical History Relation Comments high blood pressure [Other] Mother rheumatoid arthritis [Other] Sister Relation Status Comments Mother Sister Social History Tobacco Use Types Packs/Day Years Used Date Smoking Tobacco: Every Day Smokeless Tobacco: Never Tobacco Cessation:Ready to Q uit: Not Asked; Counseling Given: Yes Comments:down to 3-4 cigarettes a day Alcohol Use Standard Drinks/Week Comments Not Asked 0 (1 standard drink = 0.6 oz pur e alcohol) PHQ-2 Answer Date Recorded PHQ-2 score 2 11/13/2024 Area Deprivation Index Answer Date Homer rded National Score (1-100), lower number is lower ri sk 63 05/09/2023 State Score (1-10), lower number is lower risk 4 05/09/2023 Data from: https://www.neighborhoodatlas.medicine.[facility].edu/. Last address used for calculation [address] 05/09/2023 Sex and Gender Information Value Date Recorded Sex Assigned at Not on file Legal Sex Male 11:05 AM EST Gender Identity Not on file Sexual Orientation Not on file Last Filed Vital Signs Vital Sign Reading Time Taken Comments Blood Pressure 145/81 11/19/2024 12:22 PM EDT Pulse 88 11/19/2024 12:22 PM EDT Temperature 36.1 C (97 F) 09/16/2015 11:05 AM EST Respiratory Rate 12 05/06/2014 7:31 AM EDT Oxygen Saturation 96% 11/30/2021 1:46 PM EDT Inhaled Oxygen Concentration - - Weight 97.5 kg (214 lb 15.2 oz) 025 12:22 PM EDT Height 175.3 cm (5' 9 ) 06/30/2018 1:02 PM EST Body Mass Index 31.74 06/30/2018 1:02 PM EST Plan of Treatment Health Maintenance Due Date Last Done Comments Annual PCP Team Chronic Dise ase Visit 1978 Anxiety Screening 1978 BP Controlled (<130/80) 1978 Depression Screening 1978 HIV Screening 1978 Shingrix Vaccine (1 of 2) 1979 CT Colonography 2005 Cologuard (FIT-DNA) 2005 Colonoscopy 2005 Colorectal Cancer Screening 2005 Fecal Occult Blood 2005 Sigmoidoscopy 2005 RSV Vaccine (1 - Risk 60-74 years 1-dose series) 2020 DTaP,Tdap,Td Vaccine (2 - Td or Tdap) 06/02/2022 06/02/2012 Covid-19 Vaccine (4 - 2023-2 5 season) 2024 06/19/2021, 11/28/2020, 10/31/2020 Pneumococcal Vaccine: 50+ (4 of 4 - PCV20 or PCV21) 07/02/2024 07/02/2019, 01/15/2016, 02/03/2015 Influenza Vaccine (Season Ended) 2025 06/09/2021, 06/11/2020, 09/04/2018, Additional history exists Diabetes Screening 11/20/2027 11/19/2024, 0 08/30/2024, 04/26/2024, Additional history exists Lipid Screening 03/08/2028 03/08/2023, 02/19, 06/15/2021 Prostate Cancer Screening Discussion 03/08/2028 03/08/2023, 03/08/2022 Hepatitis C Screening Completed 09/25/2012 Medical Devices Implanted Type Area [employer]door [employer]vertising Leasing Agent Device Identifier Shelf Expiration Date Model / Serial / Lot Czp-Qy-Y-Kind Implant - [id number] Implanted:Qty: 3 on 07/03/2013 at [facility] [place] Implant Right: Bone - Foot [employer] [id number] L / / N/A Description:1.1 GUIDE WIRE L ZIGGY Bit-Oc-N-Kind Implant - [id number] Implanted:Qty: 2 on 07/03/2013 at [facility] [place] Implant [employer] [id number] N / / N/A Description:2.4 CANNULINK NE UTRAL Procedures Procedure Name Priority Date/Time Associated Diagnosis Comments CK CREATINE KINASE Routine 11/19/2024 12 :54 PM EDT HyperCKemia ALDOLASE BLD Routine 11/19/2024 12:54 PM EDT Elevated aldolase level VITAMIN D 25 HYDROXY Routine 11/19/2024 12:54 PM EDT Vitamin D deficiency C-REACTIVE PROTEIN (CRP) Routine 11/19/2024 12:54 PM EDT Elevated sed rate Elevated C-reactive protein (CRP) SED RATE WESTERGREN Routine 11/19/2024 1 2:54 PM EDT Elevated sed rate Elevated C-reactive protein (CRP) COMPLETE BLOOD COUNT Routine 11/19/2024 12:54 PM EDT Anemia of chronic disease COMPREHENSIVE METABOLIC PANEL Routine 11/19/2024 12:54 PM EDT Elevated LFTs HEP REMOTE PANEL BL Routine 09/25/2012 1 1:30 AM EST Multiple joint pain Rheumatoid arthritis from Last 3 Months or Most Recently Relevant to Health Maintenance Results * VITAMIN D 25 HYDROXY (11/19/2024 12:54 PM EDT) [facility] Vitamin D 25 Hydroxy 57.8 31.0 - 80.0 ng/mL 11/19/2024 6:43 PM EDT [facility] Blood BLOOD SPECIMEN / Unknown Venipuncture / Unknown 11/19/2024 12:54 PM EDT 11/19/2024 12:54 PM EDT us Rosy Raya MD LABORATORY Final Result Performing Organization Address City/[facility]/ZIP Co de Phone Number [facility] [address] [place] [address], [place] * (ABNORMAL) SEDIMENTATION RATE, WESTERGREN (11/19/2024 12:54 PM EDT) [facility] Sed Rate, Westergren 17(H) 0 - 15 mm/hr 11/19/2024 5:14 PM EDT [facility] Blood BLOOD SPECIMEN / Unknown Venipuncture / Unknown 11/19/2024 12:54 PM EDT 11/19/2024 12:54 PM EDT us Rosy Raya MD LABORATORY Final Result Performing Organization Address City/[facility] Co de Phone Number [facility] [address] [place] [address], [place] * (ABNORMAL) COMPREHENSIVE METABOLIC PANEL (11/19/2024 12:54 PM EDT) [facility] Protein, Total 7.4 6.3 - 8.0 g/dL 11/19/2024 7:32 PM EDT [facility] Albumin 4.2 3.9 - 4.9 g/dL 11/19/2024 7:32 PM EDT [facility] Calcium, Total 9.8 8.5 - 10.2 mg/dL 11/19/2024 7:32 PM [facility] Bilirubin, Total 0.2 0.2 - 1.3 mg/dL 11/19/2024 7:32 PM [facility] Alkaline Phosphatase 62 38 - 113 U/L 11/19/2024 7:32 PM [facility] AST 40 14 - 40 U/L 11/19/2024 7:32 PM [facility] ALT 72(H) 10 - 54 U/L 11/19/2024 7:32 PM [facility] Glucose 191(H) 74 - 99 mg/dL 11/19/2024 7:32 PM [facility] Comment: The [place] Diabetes Association (ADA) provides guidance for cutoff values for fasting glucose and random glucose. The ADA defines fasting as no caloric intake for at least 8 hours. Fasting plasma glucose results between 100 to 125 mg/dL indicate increased risk for diabetes (prediabetes). Fasting plasma glucose results greater than or equal to 126 mg/dL meet the criteria for diagnosis of diabetes. In the absence of unequivocal hyperglycemia, results should be confirmed by repeat testing. In a patient with classic symptoms of hyperglycemia or hyperglycemic crisis, random plasma glucose results greater than or equal to 200 mg/dL meet the criteria for diagnosis of diabetes. Reference: Standards of Medical Care in Diabetes 2016, [place] Diabetes Association. Diabetes Care. 2016.39(Suppl 1). BUN 16 9 - 24 mg/dL 11/19/2024 7:32 PM [facility] Creatinine 0.74 0.73 - 1.22 mg/dL 11/19/2024 7:32 PM [facility] Sodium 134(L) 136 - 144 mmol/L 11/19/2024 7:32 PM [facility] Potassium 4.5 3.7 - 5.1 mmol/L 11/19/2024 7:32 PM [facility] Chloride 98 98 - 107 mmol/L 11/19/2024 7:32 PM [facility] CO2 22 22 - 30 mmol/L 11/19/2024 7:32 PM [facility] Anion Gap 14 8 - 15 mmol/L 11/19/2024 7:32 PM EDT [facility] Estimated Glomerular Filtration Rate 101 >=60 mL/min/1.7 3m 11/19/2024 7:32 PM EDT [facility] Comment:Estimated Glomerular Filtration Rate (eGFR) is calculated using the 2020 CKD-EPI creatinine equation. This equation utilizes serum creatinine, sex, and age as parameters. The creatinine assay has traceable calibration to isotope dilution- mass spectrometry. Refer to KDIGO guidelines for clinical interpretation. In patients with unstable renal function, e.g. those with acute kidney injury, the eGFR may not accurately reflect actual GFR. Blood BLOOD SPECIMEN / Unknown Venipuncture / Unknown 11/19/2024 12:54 PM EDT 11/19/2024 12:54 PM EDT us Rosy Raya MD LABORATORY Final Result Performing Organization Address [facility] Co de Phone Number [facility] [address] [place] [address], [place] * CREATINE KINASE/CK (11/19/2024 12:54 PM EDT) CK 114 51 - 298 U/L 11/19/2024 7:32 PM EDT [facility] Blood BLOOD SPECIMEN / Unknown Venipuncture / Unknown 11/19/2024 12:54 PM EDT 11/19/2024 12:54 PM EDT Rosy Raya MD LABORATORY Final Result Performing Organization Address [facility] Co de Phone Number [facility] [address] [place] [address], [place] * (ABNORMAL) COMPLETE BLOOD COUNT (11/19/2024 12:54 PM EDT) WBC 13.60(H) 3.70 - 11.00 k/uL 11/19/2024 4:16 PM EDT [facility] RBC 4.89 4.20 - 6.00 m/uL 11/19/2024 4:16 PM EDT [facility] Hemoglobin 15.9 13.0 - 17.0 g/dL 11/19/2024 4:16 PM EDT [facility] Hematocrit 46.7 39.0 - 51.0 % 11/19/2024 4:16 PM EDT [facility] MCV 95.5 80.0 - 100.0 fL 11/19/2024 4:16 PM EDT [facility] MCH 32.5 26.0 - 34.0 pg 11/19/2024 4:16 PM EDT [facility] MCHC 34.0 30.5 - 36.0 g/dL 11/19/2024 4:16 PM EDT [facility] RDW-CV 13.0 11.5 - 15.0 % 11/19/2024 4:16 PM EDT [facility] Platelet Count 251 150 - 400 k/uL 11/19/2024 4:16 PM EDT [facility] MPV 10.1 9.0 - 12.7 fL 11/19/2024 4:16 PM EDT [facility] Absolute nRBC <0.01 <0.01 k/uL 11/19/2024 4:16 PM EDT [facility] Blood BLOOD SPECIMEN / Unknown Venipuncture / Unknown 11/19/2024 12:54 PM EDT 11/19/2024 12:54 PM EDT us Rosy Raya MD LABORATORY Final Result Performing Organization Address City/State/[facility] Co de Phone Number [facility] [address] [place] [address], * C-REACTIVE PROTEIN (11/19/2024 12:54 PM EDT) CRP <0.3 <0.9 mg/dL 11/19/2024 7:32 PM EDT [facility] Blood BLOOD SPECIMEN / Unknown Venipuncture / Unknown 11/19/2024 12:54 PM EDT 11/19/2024 12:54 PM EDT us Rosy Raya MD LABORATORY Final Result Performing Organization Address City/State/[facility] Co de Phone Number [facility] [address] [address], [place] * (ABNORMAL) ALDOLASE BLD (11/19/2024 12:54 PM EDT) Aldolase 11.3(H) 1.5 - 8.1 U/L 11/19/2024 8:04 PM EDT [facility] Comment:This test was develo ped, and its performance characteristics determined by the [facility] Department of Pathology and Laboratory Medicine. It has not been cleared or approved by the FDA. The [facility] Department of Pathology and Laboratory Medicine is regulated under CLIA as qualified to perform high- complexity testing. This test is used for clinical purposes. It should not be regarded as investigational or for research. Blood BLOOD SPECIMEN / Unknown Venipuncture / Unknown 11/19/2024 12:54 PM EDT 11/19/2024 12:54 PM EDT Rosy Raya MD LABORATORY Final Result Performing Organization Address [facility] Co de Phone Number [facility] [address] [address], [place] * HEP REMOTE PANEL BL (09/25/2012 11:30 AM EST) Hep B Core Ab, Total Negative NEGAT [facility] Hep C Antibody IA Negative NEGAT [facility] HBsAg Negative NEGAT [facility] Hep B Surface Ab, Qual Negative NEGAT [facility] Comment: A negative Hepatitis B Surface Antibody is indicative of: 1)no prior exposure to HBV, 2)lack of antibody response to an acute or chronic HBV infection, 3)lack of antibody response to HBV vaccination, or, 4)loss of immunity that followed either vaccination or infection. Blood specimen (specimen) BLOOD SPECIMEN / Unknown 09/25/2012 11:30 AM EST 09/25/2012 11:47 AM EST Rosy Raya MD LABORATORY Final Result Performing Organization Address [facility]/State/ZIP Co de Phone Number [facility] [address] [place] [address] from Last 3 Months or Most Recently Relevant to Health Maintenance Insurance [facility] MEDICARE ADVANTAGE HMO Care Teams Affiliate Manager Relationship Specialty Start Date End Date Mitchel Henderson MD [address] [place] [address], [address] [place] [address] PCP - General Internal Medicine 11/30/21
--- OUTSIDE RECORDS SUMMARY | 2025-01-16 09:31 | XMS_ITS | Encounter Summary ---
Author Organization [facility] Address [address] [place] [address] Care Team Providers Care Dealer Card Room Name Role Phone Leonela Silverman CNP Primary Care Provider [phone] Mitchel Henderson MD Primary Care Provider + Source Comments In the event this information is protected by the Federal Confidentiality of Alcohol and Drug AbusePatient Records regulations: The Federal rules restrict any use of the information to criminally investigate or prosecute any alcohol or drug abuse patient.[facility] Encounter Details Date Type Department Care Team (Late st Contact Info) Description 06/21/2020 Patient Msg Rheumatology [address] [place], [place] [id number] Rosy Raya MD [address] [place] [address] RE: Request an Appointment Social History Tobacco Use Types Packs/Day Years [...] or suspected to have Coronavirus / COVID-19? Unable to assess 06/23/2020 9:12 AM EST documented as of this encounter Functional Status [...] on filedocumented in this encounter Care Teams Dealer Card Room Relationship Specialty Start Date End Date Leonela Silverman CNP [facility] [place] [address] PCP - General Family Medicine 06/21/19 11/29/21 Mitchel Henderson MD [address] [place] [address], [address] [place], [place] [id number] PCP - General Internal Medicine 11/30/21 documented as of this encounter
--- OUTSIDE RECORDS SUMMARY | 2025-01-16 09:31 | XMS_ITS | Encounter Summary ---
Author Organization [employer] [facility] tem Address [facility] [id number] [address] [place] [address] Care Team Providers Care New Autos Delivery Driver Name Role Phone Mitchel Henderson MD Primary Care Provider [phone] Encounter Details Date Type Department Care Team (Late st Contact Info) Description 03/22/2022 Orders Only [facility] Internal Medicine/Pediatrics [address] [place] [address] Darcie Garibay RMA Parotid mass Social History Tobacco Use Types Packs/Day Years [...] family, friends, or neighbors? Once a week 09/11/2021 How often do you get togethe r with friends or relatives? Patient declined 09/11/2021 How often do you attend anabaptism or alevism serv ices? Never 09/11/2021 Do you belong to any clubs o r organizations such as anabaptism groups, unions, fraternal or athletic groups, or school groups? No 09/11/2021 How often do you attend meet ings of the clubs or organizations you belong to? Never 09/11/2021 Are you , , di vorced, , never , or living with a partner? 09/11/2021 AUDIT-C Answer Date Recorded Q1: How often do you have a drink containing alc ohol? 2-3 times a week 09/11/2021 Q2: How many drinks containi ng alcohol do you have on a typical day when you are drinking? 3 or 4 09/11/2021 Q3: How often do you have si x or more drinks on one occasion? Monthly 09/11/2021 Overall Financial Resource Strain (CARDIA) Answe r Date Recorded How hard is it for you to pa y for the very basics like food, housing, medical care, and heating? Not very hard 09/11/2021 PHQ-2 Answer Date Recorded Total Score 4 02/25/2022 [facility] - Occupational Stress Questionnaire Answer Date Recorded Do you feel stress - tense, restless, nervous, or anxious, or unable to sleep at night because your mind is troubled all the time - these days? To some extent 09/11/2021 Exercise Vital Sign Answer Date Recorde d On average, how many days pe r week do you engage in moderate to strenuous exercise (like a brisk walk)? 0 days 09/11/2021 On average, how many minutes do you engage in exercise at this level? 0 min 09/11/2021 PRAPARE - Transportation Answer Date Re corded In the past 12 months, has l ack of transportation kept you from medical appointments or from getting medications? No 08/23 In the past 12 months, has l ack of transportation kept you from meetings, work, or from getting things needed for daily living? No 09/11/2021 Childcare Answer Date Recorded Do problems getting child ca re make it difficult for you to work or study? No 09/11/2021 Employment Answer Date Recorded Do you need help finding a [facility] career center and/or a training program? No 09/11/2021 Purpose - Life Answer Date Recorded I [...] Orientation Straight 10/14/2019 7: 09 AM EST COVID-19 Exposure Response Date Recorded In the last month, have you been in contact with someone who was confirmed or suspected to have Coronavirus / COVID-19? No / Unsure 03/17/2022 10:20 AM EDT documented as of this encounter Plan of Treatment Upcoming Encounters Date Type Department Care Team (Late st Contact Info) Description 04/05/2025 9:30 AM EDT Office Visit [facility] Internal Medicine/Pediatric[facility] [address] [place] [address] [address] [place] [address] Mitchel Henderson MD [address] [place] [address], [address] [place], [place] [id number] documented as of this encounter Procedures Procedure Name Priority Date/Time Associated Diagnosis Comments AMB REFERRAL TO ENT Routine 03/22/2022 Parotid mass documented in this encounter Results * Ambulatory referral to ENT (03/22/2022) 03/22/2022 us Mitchel Henderson MD OUTPATIENT REFERRAL ORDERABLE S Final Result MANUALLY TRANSCRIBED RESULTS documented in this encounter Visit Diagnoses Diagnosis Parotid mass Swelling, mass, or lump in head and neck documented in this encounter Additional Health Concerns Infection Onset Date Last Indicated Resolved Time COVID-19 Positive 09/08/2022 09/08/2022 09/29/2022 11:12 PM EST Assessment Noted Time PHQ-9 Depression Total Score: 4 02/26/20 22 6:58 AM EDT documented as of this encounter Care Teams New Autos Delivery Driver Relationship Specialty Start Date End Date Mitchel Henderson MD [address] [place] [address], [address] [place], [place] [id number] PCP - General Pediatrics 09/18/21 documented as of this encounter
--- OUTSIDE RECORDS SUMMARY | 2025-01-16 09:31 | XMS_ITS | Encounter Summary ---
Author Organization [facility] Address [address] [place] [address] Care Team Providers Care Skin Specialist Name Role Phone Leonela Silverman CNP Primary Care Provider [phone] Mitchel Henderson MD Primary Care Provider + Source Comments In the event this information is protected by the Federal Confidentiality of Alcohol and Drug AbusePatient Records regulations: The Federal rules restrict any use of the information to criminally investigate or prosecute any alcohol or drug abuse patient.[facility] Encounter Details Date Type Department Care Team (Late st Contact Info) Description 06/28/2020 Patient Msg Rheumatology [address] [facility] [address] [place], [place] [id number] Rosy Raya MD [address] [place] [address] results Social History Tobacco Use Types Packs/Day [...] have Coronavirus / COVID-19? No / Unsure 06/26/2020 1:16 PM EST documented as of this encounter Functional Status * Are you deaf or do you have serious difficulty hearing? Answer Date of Assessment Author No 02/13/2015 2:15 PM EDT LobitozeynepEstela landa Ma * Are you blind or do you have serious difficulty seeing, even when wearing glasses? Answer Date of Assessment Author No 02/13/2015 2:15 PM EDT LobitozeynepEstela landa Ma * Do you have serious difficulty walking or climbing stairs? Answer Date of Assessment Author Yes 02/13/2015 2:15 PM EDT LobitozeynepEstela landa Ma * Do you have difficulty dressing or bathing? Answer Date of Assessment Author No 02/13/2015 2:15 PM EDT LobitozeynepEstela landa Ma * Because of a physical, mental, or emotional condition, do you have difficulty doing errands alone such as visiting a doctor's office or shopping? Answer Date of Assessment Author No 02/13/2015 2:15 PM EDT LobitozeynepEstela landa Ma documented as of this encounter Mental Status * Because of a physical, mental, or emotional condition, do you have serious difficulty concentrating, remembering, or making decisions? Answer Entry Date Author No 02/13/2015 2:15 PM EDT LobitozeynepEstela landa Ma documented in this encounter Plan of Treatment Not on file documented as of this encounter Visit Diagnoses Not on filedocumented in this encounter Care Teams Skin Specialist Relationship Specialty Start Date End Date Leonela Silverman CNP [address] [facility] [place], [place] [id number] PCP - General Family Medicine 06/21/19 11/29/21 Mitchel Henderson MD [address] [place] [address], [address] [place], [place] [id number] PCP - General Internal Medicine 11/30/21 documented as of this encounter
--- OUTSIDE RECORDS SUMMARY | 2025-01-16 09:31 | XMS_ITS | Encounter Summary ---
Author Organization [facility] Address [address] [place] [address] Care Team Providers Care Statement Services Representative Name Role Phone Leonela Silverman CNP Primary Care Provider [phone] Mitchel Henderson MD Primary Care Provider + Source Comments In the event this information is protected by the Federal Confidentiality of Alcohol and Drug AbusePatient Records regulations: The Federal rules restrict any use of the information to criminally investigate or prosecute any alcohol or drug abuse patient.[facility] Encounter Details Date Type Department Care Team (Late st Contact Info) Description 06/23/2020 Patient Msg Rheumatology [address] [place], [place] [phone] Rosy Raya MD [address] [place] [address] please complete nonfasting labs Social History Tobacco Use Types Packs/Day Years [...] on filedocumented in this encounter Care Teams Statement Services Representative Relationship Specialty Start Date End Date Leonela Silverman CNP [facility] [place] [address] PCP - General Family Medicine 06/21/19 11/29/21 Mitchel Henderson MD [address] [place] [address], [address] [place] [address] PCP - General Internal Medicine 11/30/21 documented as of this encounter
--- OUTSIDE RECORDS SUMMARY | 2025-01-16 09:31 | XMS_ITS | Encounter Summary ---
Author Organization [facility] Address [address] [place] [address] Care Team Providers Care Medical Attendant Name Role Phone Edgar Mendoza DO Primary Care Provider [phone] Leonela Silverman CNP Primary Care Provider [phone] Mitchel Henderson MD Primary Care Provider + Source Comments In the event this information is protected by the Federal Confidentiality of Alcohol and Drug AbusePatient Records regulations: The Federal rules restrict any use of the information to criminally investigate or prosecute any alcohol or drug abuse patient.[facility] Encounter Details Date Type Department Care Team (Late st Contact Info) Description 06/13/2013 Patient Msg Medical Records [address] [place] [address] Provider, Cc RE: Patient Registration Completed Social History Tobacco Use Types Packs/Day Years Used Date Smoking Tobacco: Never Assessed Sex and Gender Information Value Date Recorded Sex Assigned at Not on file Legal Sex Male 11:05 AM EST Gender Identity Not on file Sexual Orientation Not on file documented as of this encounter Plan of Treatment Not on file documented as of this encounter Visit Diagnoses Not on filedocumented in this encounter Care Teams Medical Attendant Relationship Specialty Start Date End Date Edgar Mendoza DO [address] [place] [address] PCP - General Family Medicine 07/21/12 06/20/19 Leonela Silverman CNP [address] [facility] [place] [address] PCP - General Family Medicine 06/21/19 11/29/21 Mitchel Henderson MD [address] [place] [address], [address] [place] [address] PCP - General Internal Medicine 11/30/21 documented as of this encounter
--- OUTSIDE RECORDS SUMMARY | 2025-01-16 09:31 | XMS_ITS | Encounter Summary ---
Author Organization [facility] Address [address] [place] [address] Care Team Providers Care Pet Care Attendant Name Role Phone Leonela Silverman CNP Primary Care Provider [phone] Mitchel Henderson MD Primary Care Provider + Source Comments In the event this information is protected by the Federal Confidentiality of Alcohol and Drug AbusePatient Records regulations: The Federal rules restrict any use of the information to criminally investigate or prosecute any alcohol or drug abuse patient.[facility] Encounter Details Date Type Department Care Team (Late st Contact Info) Description 11/28/2019 Patient Msg Rheumatology [address] [place], [place] [phone] Rosy Raya MD [address] [place], [place] [phone] RE: Appointment Cancellation Request Social History Tobacco [...] on filedocumented in this encounter Care Teams Pet Care Attendant Relationship Specialty Start Date End Date Leonela Silverman CNP [facility] [address] PCP - General Family Medicine 06/21/19 11/29/21 Mitchel Henderson MD [address] [place] [address], [address] [place] [address] PCP - General Internal Medicine 11/30/21 documented as of this encounter
--- OUTSIDE RECORDS SUMMARY | 2025-01-16 09:31 | XMS_ITS | Patient Health Record ---
Author Organization [facility] [place] Address [address] [place] [address] Care Team Providers Care Production Team Manager Name Role Phone Mitchel Henderson MD Primary Care Provider Unavaila ble Allergies No Known Allergies Reason For Referral No Information Medications Medication SIG (Take, Route, Frequency, Duration) Notes Start Date End Date Status hydroCHLOROthiazide 25 MG 1 tablet in th e morning Orally Once a day for 30 day(s) Active Cyclobenzaprine HCl 5 MG 1 tablet at bed time as needed Orally Once a day for 30 day(s) Active Diclofenac Potassium 50 MG 1 tablet with food or milk as needed Orally Twice a day Active metFORMIN HCl ER 500 MG 1 tablet with ev ening meal Orally Once a day for 30 day(s) Active Lisinopril 30 MG 1 tablet Orally Once a day for 30 day(s) Active Atorvastatin Calcium 20 MG 1 tablet Oral ly Once a day for 30 day(s) Active prednisoLONE 5 MG as directed Orally Active Fluticasone Propionate 50 MCG/ACT 1 spray in each nostril Nasally Once a day for 30 day(s) Active Social History Tobacco Use: Social History Observation Description Date Details (start date - stop date) Current Smoker NA - NA Tobacco Use/Smoking Question Answer Notes Patient is a current smoker Problems Problem Type SNOMED Code ICD Code Onset Dates Problem Status W/U Status Risk Notes Problem Cervical disc disease (697047910) Cervical disc disease (M50.90) Active confirmed Problem Herniation of nucleus pulposus of cervical intervertebral disc (990449959971804) Herniated nucleus pulposus, C5-6 (M50.222) Active confirmed Problem Displacement of cervical intervertebral disc without myelopathy (85584667) Herniated nucleus pulposus, C6-7 (M50.223) Active confirmed Plan Of Treatment No Information Insurance Providers Payer Name Payer Address Payer Phone Subscriber Number Group Number Insured Name Patient Relationship to Insured Coverage Start Date Coverage End Date [employer] MEDICARE ADVANTAGE [address] [address] [place] [phone] [id number] Allen Gutiérrez Self - patient is the insured 2 Medical (General) History Medical History History ICD Code hypertension rheumatoid arthritis Surgical History Surgery Date(Month/Year) rotator cuff tear repair 2019 carpal tunnel release 2019
--- OUTSIDE RECORDS SUMMARY | 2025-01-16 09:31 | XMS_ITS | Encounter Summary ---
[facility] Address [facility] [id number] [address] [place] [address] Care Team Providers Care Photo Studio Assistant Name Role Phone Mitchel Henderson MD Primary Care Provider [phone] Encounter Details Date Type Department Care Team (Late st Contact Info) Description 09/13/2022 Orders Only [facility] Internal Medicine/Pediatrics [address] [place] [address] External, Scanning Provider Social History [...] declined 09/11/2021 How often do you attend samaritan or quaker serv ices? Never 09/11/2021 Do you belong to any clubs o r organizations such as samaritan groups, unions, fraternal or athletic groups, or [...] Answer Date Recorded Total Score 4 02/25/2022 [facility]at ional Health - [...] Recorded Do you need help finding a [facility] career center and/or a training [...] EDT Office Visit [facility] Medicine/Pediatrics [address] [place] [address] 1 [place] [address] Mitchel Henderson MD [address] [place] [address], [address] [place] [address] documented as of this encounter Procedures Procedure Name Priority Date/Time Associated Diagnosis Comments MULTIPLE LABS Routine 09/08/2022 SARS COV 2 (COVID-19) STAT 09/08/2022 XR CHEST 2 VWS Routine 09/08/2022 documented in this encounter Results * (ABNORMAL) SARS COV 2 (COVID-19) (09/08/2022) EXTERNAL SARS COV 2 Positive( A) Negative MANUALLY TRANSCRIBED RESULTS NASOPHARYNGEAL 09/08/2022 us Scanning Provider External MICROBIOLOGY - GENERA L ORDERABLES Final Result Performing Organization Address City/[facility]/ZIP Co de Phone Number MANUALLY TRANSCRIBED RESULTS * Multiple labs (09/08/2022) 09/08/2022 us Scanning Provider External SC IMAGING Final Result Performing Organization Address [facility] Co de Phone Number MANUALLY TRANSCRIBED RESULTS * X-ray chest 2 views (09/08/2022) Anatomical Region Laterality Modality Body, Chest N/A Computed Radiogr aphy 09/08/2022 us Scanning Provider External IMG DIAGNOSTIC IMAGIN G ORDERABLES Final Result documented in this encounter Visit Diagnoses Not on filedocumented in this encounter Additional Health Concerns Infection Onset Date Last Indicated Resolved Time COVID-19 Positive 09/08/2022 09/08/2022 09/29/2022 11:12 PM EST Assessment Noted Time PHQ-9 Depression Total Score: 4 02/26/20 6:58 AM EDT documented as of this encounter Care Teams Photo Studio Assistant Relationship Specialty Start Date End Date Mitchel Henderson MD [address] [place] [address], [address] [place] [address] PCP - General Pediatrics 09/18/21 documented as of this encounter
--- OUTSIDE RECORDS SUMMARY | 2025-01-16 09:31 | XMS_ITS | Encounter Summary ---
Author Organization [facility] Address [address] [place] [address] Care Team Providers Care Potato Chip Maker Name Role Phone Leonela Silverman CNP Primary Care Provider [phone] Mitchel Henderson MD Primary Care Provider + Source Comments In the event this information is protected by the Federal Confidentiality of Alcohol and Drug AbusePatient Records regulations: The Federal rules restrict any use of the information to criminally investigate or prosecute any alcohol or drug abuse patient.[facility] Encounter Details Date Type Department Care Team (Late st Contact Info) Description 07/18/2019 Patient Msg Rheumatology [address] [facility] [address] [place], [place] [phone] Rosy Raya MD [address] [place], [place] [phone] results Social History Tobacco Use Types Packs/Day [...] Assessment Author No 02/13/2015 2:15 PM EDT Gildardo Kwan Majulián Dejesus * Do you have serious difficulty walking or climbing stairs? Answer Date of Assessment Author Yes 02/13/2015 2:15 PM EDT Gildardo Kwan Maen Oleg * Do you have difficulty dressing or [...] Entry Date Author No 02/13/2015 2:15 PM Estela Neville Ma documented in this encounter Plan of Treatment Not on file documented as of this encounter Visit Diagnoses Not on filedocumented in this encounter Care Teams Potato Chip Maker Relationship Specialty Start Date End Date Leonela Silverman CNP [address] [place] [address] PCP - General Family Medicine 06/21/19 11/29/21 Mitchel Henderson MD [address] [place], [place] [address] [place] [address] PCP - General Internal Medicine 11/30/21 documented as of this encounter
--- OUTSIDE RECORDS SUMMARY | 2025-01-16 09:31 | XMS_ITS | Encounter Summary ---
Author Organization [facility] Address [address] [place] [address] Care Team Providers Care Control Cabinet Assembler Name Role Phone Herrera Leonela FONTAINE Primary Care Provider [phone] Mitchel Henderson MD Primary Care Provider + Source Comments In the event this information is protected by the Federal Confidentiality of Alcohol and Drug AbusePatient Records regulations: The Federal rules restrict any use of the information to criminally investigate or prosecute any alcohol or drug abuse patient.[facility] Encounter Details Date Type Department Care Team (Late st Contact Info) Description 11/14/2020 Patient Msg Rheumatology [address] [facility] [address] [place], [place] [phone] Rosy Raya MD [address] [place] [address] results Social History Tobacco Use [...] N ot on file 07/29/2020 Data from: https://www.[email or web address].[email or web address]/. Last address used for calculation Not [...] have Coronavirus / COVID-19? No / Unsure 11/13/2020 9:02 AM EDT documented as of this encounter [...] Assessment Author No 02/13/2015 2:15 PM EDT Esetla Kwan Ma * Because of a physical, [...] on filedocumented in this encounter Care Teams Control Cabinet Assembler Relationship Specialty Start Date End Date Leonela Silverman CNP [address] [place] [address] PCP - General Family Medicine 06/21/19 11/29/21 Mitchel Henderson MD [address] [place] [address], [address] [place], [place] [id number] PCP - General Internal Medicine 11/30/21 documented as of this encounter
--- OUTSIDE RECORDS SUMMARY | 2025-01-16 09:31 | XMS_ITS | Encounter Summary ---
Author Organization [facility] tem Address [id number] [address] [place] [address] Care Team Providers Care Music Cataloguer Name Role Phone Mitchel Henderson MD Primary Care Provider [phone] Encounter Details Date Type Department Care Team (Late st Contact Info) Description 10/12/2021 Orders Only [facility] Internal Medicine/Pediatrics [address] [place] [address] 1 [place] [address] Mitchel Henderson MD [address] [place] [address], [address] [place], [place] [id number] Cervical radiculopathy Social History Tobacco Use Types Packs/Day Years [...] declined 09/11/2021 How often do you attend bahai or rastafarian serv ices? Never 09/11/2021 Do you belong to any clubs o r organizations such as bahai groups, unions, fraternal or athletic groups, or [...] 09/11/2021 PHQ-2 Answer Date Recorded Total Score 3 09/11/2021 [facility] Occupat ional Health - Occupational Stress [...] have Coronavirus / COVID-19? No / Unsure 10/01/2021 8:13 AM EST documented as of this encounter Plan of Treatment Upcoming Encounters Date Type Department Care Team (Late st Contact Info) Description 04/05/2025 9:30 AM EDT Office Visit [facility] [address] [place] [address] [address] [place] [address] Mitchel Henderson MD [address] [place] [address], [address] [place] [address] documented as of this encounter Procedures Procedure Name Priority Date/Time Associated Diagnosis Comments AMB REFERRAL TO NEUROSURGERY Routine 10/12/2021 Cervical radiculopathy documented in this encounter Results * Ambulatory referral to Neurosurgery (10/12/2021) 10/12/2021 us Mitchel Henderson MD OUTPATIENT REFERRAL ORDERABLE S Final Result MANUALLY TRANSCRIBED RESULTS documented in this encounter Visit Diagnoses Diagnosis Cervical radiculopathy Brachial neuritis or radiculitis nos documented in this encounter Additional Health Concerns Infection Onset Date Last Indicated Resolved Time COVID-19 Positive 09/08/2022 09/08/2022 09/29/2022 11:12 PM EST Assessment Noted Time PHQ-9 Depression Total Score: 3 09/11/19 22 10:14 AM EST documented as of this encounter Care Teams Music Cataloguer Relationship Specialty Start Date End Date Mitchel Henderson MD [address] [place] [address], [address] [place] [address] PCP - General Pediatrics 09/18/21 documented as of this encounter
--- NOTE | 2025-01-16 10:24 | PM.CN ---
Consult Note: HPI Data of Consult Patient: known to practice within the last 3 years Requesting Physician: Deirdre Diaz NP Primary Care Provider: BENI BURT Consult Narrative Reason for consult: low back pain Narrative: Allen Gutiérrez a pleasant 64 year old male with moderate to severe low back and RLE pain/weakness presents for evaluation. hx of lumbar spondylosis, lumbar DDD responds well to interventional therapy. in the last 6 months he has failed to benefit from > 6 weeks of PT and provider guided HEP, heat, ice, tylenol, NSAIDs. tramadol upset his stomach, currently on hydrocodone-acetaminophen 5-325mg TID PRN moderate to severe pain with benefit without side effects. utilizing flexeril PRN and tylenol with mild relief. recent lumbar MRI consitent with lumbar spondylosis and lumbar stenosis at L4-5 L5-S1. cc:: CC: Deirdre Diaz NP Review of Systems ROS Status of ROS 10 or more systems reviewed and unremarkable except as noted in history and below [facility] Medical History (Updated 01/16/25 @ 10:27 by Deirdre Diaz NP) Dupuytren contracture ?M72.0 - Palmar fascial fibromatosis [Dupuytren] (ICD-10) Upper back pain ?M54.9 - Dorsalgia, unspecified (ICD-10) Neck pain ?M54.2 - Cervicalgia (ICD-10) Low back pain ?M54.50 - Low back pain, unspecified (ICD-10) Rheumatoid arthritis ?M06.9 - Rheumatoid arthritis, unspecified (ICD-10) Obesity ?E66.9 - Obesity, unspecified (ICD-10) Diabetes ?E11.9 - Type 2 diabetes mellitus without complications (ICD-10) Smoker ?F17.200 - Nicotine dependence, unspecified, uncomplicated (ICD-10) COPD (chronic obstructive pulmonary disease) ?J44.9 - Chronic obstructive pulmonary disease, unspecified (ICD-10) High cholesterol ?E78.00 - Pure hypercholesterolemia, unspecified (ICD-10) Hypertension ?I10 - Essential (primary) hypertension (ICD-10) Osteoarthritis ?M19.90 - Unspecified osteoarthritis, unspecified site (ICD-10) Surgical History History of carpal tunnel release ?Z98.890 - Other specified postprocedural states (ICD-10) H/O arthroscopy of shoulder ?Z98.890 - Other specified postprocedural states (ICD-10) H/O arthroscopic knee surgery ?Z98.890 - Other specified postprocedural states (ICD-10) Meds Home Medications and Allergies Home Medications ?Medication ?Instructions ?Recorded ?Confirmed ?Type tramadol 50 mg tablet 50 mg PO TID PRN pain 12/17/24 12/17/24 History tramadol 50 mg tablet 50 mg PO TID PRN pain #90 tabs 12/17/24 Rx cholecalciferol (vitamin D3) 125 125 mcg PO DAILY 12/19/24 12/19/24 History mcg (5,000 unit) tablet (Vitamin D3) cyclobenzaprine 5 mg tablet 5 mg PO HS 12/19/24 12/19/24 History etanercept 50 mg/mL (1 mL) 50 mg subcut QWEEK 12/19/24 12/19/24 History subcutaneous syringe (Enbrel) hydrochlorothiazide 12.5 mg tablet 25 mg PO DAILY 12/19/24 12/19/24 History leflunomide 10 mg tablet 10 mg PO DAILY 12/19/24 12/19/24 History lisinopril 30 mg tablet 30 mg PO DAILY 12/19/24 12/19/24 History metformin 500 mg tablet 500 mg PO DAILY 12/19/24 12/19/24 History metoprolol succinate 25 mg 25 mg PO DAILY 12/19/24 12/19/24 History tablet,extended release 24 hr umeclidinium 62.5 mcg/actuation 1 inh inhalation DAILY 12/19/24 12/19/24 History blister powder for inhalation (Incruse Ellipta) hydrocodone 5 mg-acetaminophen 325 1 tab PO TID PRN pain #21 tabs 12/26/24 Rx mg tablet Allergies Allergy/AdvReac Type Severity Reaction Status Date / Time acetaminophen (From Percocet) Allergy Mild Unknown Verified 12/19/24 07:42 bupropion Allergy Mild Unknown Verified 12/19/24 07:42 buspirone (From BuSpar) Allergy Mild Unknown Verified 12/19/24 07:42 methotrexate Allergy Mild Unknown Verified 12/19/24 07:42 oxycodone (From Percocet) Allergy Mild Unknown Verified 12/19/24 07:42 venlafaxine (From Effexor) Allergy Mild Unknown Verified 12/19/24 07:42 Exam Constitutional Documenting provider has reviewed patient's vital signs: yes Common normals: no apparent distress, oriented x3, healthy appearing, alert and well nourished General appearance: cooperative HENMT Common normals: normocephalic, hearing grossly normal bilaterally and moist oral mucous membranes Head and scalp: normocephalic Eye Common normals: PERRL Pupil: PERRL Neck & C-Spine Common normals: full ROM General: normal visual inspection Chest Common normals: inspection of chest normal Respiratory Common normals: normal respiratory effort, no retractions and no use of accessory muscles Back & Pelvis Lumbar spine/lower back: pain with ROM, lumbar spinal tenderness and straight leg raise positive right Sacroiliac joints: SI joint(s) abnormal Other: decreased sensation right L4,5,S1 strength 4/5 in RLE 5/5 in LLE right sij positive bridger(patricks), gaenslens, thigh thrust, compression test Neuro Common normals: oriented x3 Sensorium/orientation: alert Psych Common normals: mental status grossly normal, thought process normal, cooperative, affect normal, speech normal and activity/motor behavior normal Speech: normal speech Thought process: normal thought process Results Additional Findings Additional findings: If on a controlled substance or opioids, I have checked an OARRS report on this patient and there are no aberrancies noted in the prescribing history.??If on a controlled substance or opioid a drug screen was completed and reviewed within the last year, and if there has not been a drug screen completed we ordered one today to monitor higher risk, state monitored pain medication use. As part of providing excellent, safe, comprehensive care, the following was completed at our patient's visit: 1. A medication reconciliation and review to ensure accurate knowledge of current/active medications, including asking our patients to inform us about any [id number] medications or herbal remedies/nutritional supplements/alternative remedies. 2. A review to specifically ensure our patients have had annual screening for screening for depression, screening for tobacco use, and screening for unhealthy alcohol use. For concerning screenings had a discussion with the patient, provided patient education, and recommended follow-up with primary care provider when appropriate. If patient noted with a risk of falling, they received education on strength, gait, and balance training to prevent future risk of falling. Portions of this note may have been carried over from the previous visit and updated as appropriate. Please note this office utilizes paper charting in addition to the electronic medical record. A list of current medications, vitals, and PMH is available there as the clinical staff outside of myself do not have access to [employer] charting during the clinic day operations. As part of providing quality comprehensive care the current medications, vitals, and PMH were reviewed in the paper chart. Assessment and Plan Assessment and Plan (1) Lumbar stenosis with neurogenic claudication: Assessment and Plan: The patient has had over 3 months of moderate to severe low back and RLE pain with functional impairment and inadequate response to conservative care including NSAIDS (unless there are contraindication such as concurrent blood thinners), multiple oral or topical pain medications, and home exercise program/physical therapy.? Patient has completed >6 weeks of guided home exercise program and/or formal physical therapy program without relief of their symptoms.? I have reviewed the imaging of the lumbar spine and no red flags were identified.? The Oswestry Disability Index was completed, and the patient scored a 56%.? The patient noted the following:?? moderate to severe pain impacting ADLs, sitting, standing, walking, sleeping, social life, and travel? We discussed the risks and benefits of the procedure with the patient, and we are NOT planning on using sedation as outlined in the guidelines from Medicare unless there is a documented reason that sedation would be strongly recommended.?? ?The procedure will be completed with fluorosopci guidance.? (2) Lumbar spondylosis: (3) Sacroiliitis: (4) Chronic prescription opiate use: Assessment and Plan: I feel these medications are improving the patient's quality of life and allow them to tolerate activities of daily living as well as participate in recreational activity.? The patient does not report intolerable side effects. The patient is NOT opioid naive and non-pharmacologic and non-opioid treatment has failed to significantly relieve the patient's pain and improve functionality. The patient has a diagnosis that is related to a somatic or visceral pain etiology. ? ?? I reviewed with the patient the potential risks and side effects with the use of? opioid medications including but not limited to respiratory depression,? sedation, and even . Within the last 12 months I have verified the patient has access to naloxone should? these effects occur. The patient was advised to let? their family know they had Naloxone in case they would need to administer? the medication. I advised the patient to avoid the use of any other? sedation substances including alcohol, THC, and benzodiazepines while? taking opioid medications due to the risk of compounding side effects and? detrimental outcomes. within the last 12 months I have reviewed the CHAIN TENDER, pain treatment agreement and urine drug screen.? ?? A drug screen was completed within the last year, and no aberrancies were noted regarding their use of controlled substances. The patient understands they are subject to the terms and conditions of the pain contract that they have signed. ? ?? I have checked an OARRS report on this patient today and there are no aberrancies noted in the prescribing history.? Plan proceed with right L4-5 L5-S1 TFESI for lumbar stenosis with NC, consider right SIJ injection if symptoms persist start gabapentin 300mg BID, risks vs benefits reviewed continue hydrocodone-acetaminophen 5-325mg TID PRN moderate to severe pain, goal to wean with interventional therapy continue HEP as tolerated f/u 2 weeks after TFESI
== END 2025-01-16 09:28 | disposition home or self-care (01) ==
PROVIDERS: PCP Internal Medicine; Visit Provider Nurse Practitioner
DX: M48.062 Spinal stenosis, lumbar region with neurogenic claudication (principal); M47.816 Spondylosis without myelopathy or radiculopathy, lumbar region; M46.1 Sacroiliitis, not elsewhere classified; Z79.891 Long term (current) use of opiate analgesic
CPT/HCPCS: G0463

== ENCOUNTER 2025-01-28 08:30 | Day surgery (SDC) | payer MEDICARE, SELFPAY ==
[2025-01-28 09:02] VITALS: BP 151/93; PULSE 84; TEMP 37.4; O2SAT 96
[2025-01-28 09:09] LABS: Glucometer 241 mg/dL (74-106)
[2025-01-28 09:41] VITALS: BP 146/83; PULSE 84; O2SAT 94
[2025-01-28 09:42] VITALS: BP 150/80; PULSE 83; O2SAT 97
[2025-01-28] MEDS: BUPIVACAINE HCL 0.25% PF 25 MG/10 ML VIAL INJ (09:45)
[2025-01-28] MEDS: IOHEXOL 240 MG/ML - 10 ML VIAL 24 MG INJ (09:45)
[2025-01-28] MEDS: 0.9 % SODIUM CHLORIDE 10 ML SYRINGE - SALINE FLUSH INJ (09:45)
[2025-01-28] MEDS: LIDOCAINE HCL 2% 400 MG/20 ML MDV INJ (09:45)
[2025-01-28] MEDS: METHYLPREDNISOLONE ACETATE 80 MG/ML VIAL INJ (09:46)
--- NOTE | 2025-01-28 09:47 | P.ON_ITS ---
Date of procedure: 01/28/25 Pre-op diagnosis: Pain due to lumbar stenosis with neurogenic claudication Post-op diagnosis: same as pre-op Procedure: Procedure: Right L4-5, L5-S1 transforaminal epidural steroid injection Medications: Bupivacaine 0.25% 2cc, lidocaine 2% 1cc, depomedrol 80mg The patient was seen and examined in the preoperative holding area.? Informed consent was obtained and placed on the chart.? Patient was brought to the medical procedure unit and placed in the prone position where a timeout was completed verifying the correct patient, procedure site, position, and planned special equipment using sterile aseptic technique.? Under direct fluoroscopic visualization a 25-gauge Quincke tipped spinal needle was advanced to the designated neural foramen where contrast dye was injected to show adequate spread.? The needle was inserted at level right L4-5. There was no evidence of vascular or adverse uptake.? Epidural spread was appreciated.? The above- mentioned injectate was then placed in a 1.5 mL aliquot preceded by negative aspiration.? The needle was removed. The needle was inserted and the procedure repeated at level right L5-S1.? The surgery site was covered.? Patient was taken to the postprocedural recovery area and monitored for an appropriate length of time before found suitable for discharge in the accompaniment of a responsible adult. Anesthesia: Local Surgeon: Loyda Ariza Pathology: none sent Condition: stable Disposition: no change
== END 2025-01-28 09:50 | disposition home or self-care (01) ==
LOC: SURGOUT 08:31
PROVIDERS: PCP Internal Medicine; Visit Provider Anesthesiology
DX: M54.50 Low back pain, unspecified (principal); M48.062 Spinal stenosis, lumbar region with neurogenic claudication; E11.8 Type 2 diabetes mellitus with unspecified complications; Z79.84 Long term (current) use of oral hypoglycemic drugs
CPT/HCPCS: 36415; 64483; 64484; 82948; J0665; J1010; Q9966

== ENCOUNTER 2025-02-07 10:30 | Outpatient (OUT) | payer MEDICARE, SELFPAY ==
--- NOTE | 2025-02-07 13:39 | PM.CN ---
Consult Note: HPI Data of Consult Patient: known to practice within the last 3 years Consult date: 02/07/25 Requesting Physician: Deirdre Diaz NP Primary Care Provider: BENI BURT Consult Narrative Reason for consult: low back pain Narrative: Allen Gutiérrez a pleasant 64 year old male with moderate to severe low back and RLE pain/weakness presents for evaluation. hx of lumbar spondylosis, lumbar DDD responds well to interventional therapy. in the last 6 months he has failed to benefit from > 6 weeks of PT and provider guided HEP, heat, ice, tylenol, NSAIDs. tramadol upset his stomach, currently on gabapentin 300mg BID and hydrocodone-acetaminophen 5-325mg TID PRN moderate to severe pain with benefit without side effects. utilizing flexeril PRN and tylenol with mild relief. recent lumbar MRI consitent with lumbar spondylosis and lumbar stenosis at L4-5 L5-S1. recently underwent right L4-5 L5-S1 TFESI with >80% improvement ongoing. pt has discontinued flexeril, norco, and gabapentin as he has not needed. pain 1/10 increasing to 3/10 achy. cc:: CC: Deirdre Diaz NP Review of Systems ROS Status of ROS 10 or more systems reviewed and unremarkable except as noted in history and below [facility] Medical History (Updated 01/16/25 @ 10:27 by Deirdre Diaz NP) Dupuytren contracture ?M72.0 - Palmar fascial fibromatosis [Dupuytren] (ICD-10) Upper back pain ?M54.9 - Dorsalgia, unspecified (ICD-10) Neck pain ?M54.2 - Cervicalgia (ICD-10) Low back pain ?M54.50 - Low back pain, unspecified (ICD-10) Rheumatoid arthritis ?M06.9 - Rheumatoid arthritis, unspecified (ICD-10) Obesity ?E66.9 - Obesity, unspecified (ICD-10) Diabetes ?E11.9 - Type 2 diabetes mellitus without complications (ICD-10) Smoker ?F17.200 - Nicotine dependence, unspecified, uncomplicated (ICD-10) COPD (chronic obstructive pulmonary disease) ?J44.9 - Chronic obstructive pulmonary disease, unspecified (ICD-10) High cholesterol ?E78.00 - Pure hypercholesterolemia, unspecified (ICD-10) Hypertension ?I10 - Essential (primary) hypertension (ICD-10) Osteoarthritis ?M19.90 - Unspecified osteoarthritis, unspecified site (ICD-10) Surgical History History of carpal tunnel release ?Z98.890 - Other specified postprocedural states (ICD-10) H/O arthroscopy of shoulder ?Z98.890 - Other specified postprocedural states (ICD-10) H/O arthroscopic knee surgery ?Z98.890 - Other specified postprocedural states (ICD-10) Meds Home Medications and Allergies Home Medications ?Medication ?Instructions ?Recorded ?Confirmed ?Type cholecalciferol (vitamin D3) 125 125 mcg PO DAILY 12/19/24 01/28/25 History mcg (5,000 unit) tablet (Vitamin D3) cyclobenzaprine 5 mg tablet 5 mg PO HS 12/19/24 01/28/25 History etanercept 50 mg/mL (1 mL) 50 mg subcut QWEEK 12/19/24 01/28/25 History subcutaneous syringe (Enbrel) hydrochlorothiazide 12.5 mg tablet 25 mg PO DAILY 12/19/24 01/28/25 History leflunomide 10 mg tablet 10 mg PO DAILY 12/19/24 01/28/25 History lisinopril 30 mg tablet 30 mg PO DAILY 12/19/24 01/28/25 History metformin 500 mg tablet 500 mg PO DAILY 12/19/24 01/28/25 History umeclidinium 62.5 mcg/actuation 1 inh inhalation DAILY 12/19/24 01/28/25 History blister powder for inhalation (Incruse Ellipta) gabapentin 300 mg capsule 300 mg PO BID #60 caps 01/16/25 01/28/25 Rx hydrocodone 5 mg-acetaminophen 325 1 tab PO TID PRN pain #90 tabs 01/16/25 01/28/25 Rx mg tablet Allergies Allergy/AdvReac Type Severity Reaction Status Date / Time acetaminophen (From Percocet) Allergy Mild Unknown Verified 01/28/25 09:09 bupropion Allergy Mild Unknown Verified 01/28/25 09:09 buspirone (From BuSpar) Allergy Mild Unknown Verified 01/28/25 09:09 methotrexate Allergy Mild Unknown Verified 01/28/25 09:09 oxycodone (From Percocet) Allergy Mild Unknown Verified 01/28/25 09:09 venlafaxine (From Effexor) Allergy Mild Unknown Verified 01/28/25 09:09 Exam Constitutional Documenting provider has reviewed patient's vital signs: yes Common normals: no apparent distress, oriented x3, healthy appearing, alert and well nourished General appearance: cooperative HENMT Common normals: normocephalic, hearing grossly normal bilaterally and moist oral mucous membranes Head and scalp: normocephalic Eye Common normals: PERRL Pupil: PERRL Neck & C-Spine Common normals: full ROM General: normal visual inspection Chest Common normals: inspection of chest normal Respiratory Common normals: normal respiratory effort, no retractions and no use of accessory muscles Back & Pelvis Lumbar spine/lower back: lumbar ROM normal and pain with ROM; no lumbar spinal tenderness, straight leg raise negative right and straight leg raise negative left Sacroiliac joints: SI joints normal Other: mild facet loading at L4-S1 strength 5/5 in BLE sensation intact BLE Neuro Common normals: oriented x3 Sensorium/orientation: alert Psych Common normals: mental status grossly normal, thought process normal, cooperative, affect normal, speech normal and activity/motor behavior normal Speech: normal speech Thought process: normal thought process Results Additional Findings Additional findings: If on a controlled substance or opioids, I have checked an OARRS report on this patient and there are no aberrancies noted in the prescribing history.??If on a controlled substance or opioid a drug screen was completed and reviewed within the last year, and if there has not been a drug screen completed we ordered one today to monitor higher risk, state monitored pain medication use. As part of providing excellent, safe, comprehensive care, the following was completed at our patient's visit: 1. A medication reconciliation and review to ensure accurate knowledge of current/active medications, including asking our patients to inform us about any yhty-rea-vnewfrz medications or herbal remedies/nutritional supplements/alternative remedies. 2. A review to specifically ensure our patients have had annual screening for screening for depression, screening for tobacco use, and screening for unhealthy alcohol use. For concerning screenings had a discussion with the patient, provided patient education, and recommended follow-up with primary care provider when appropriate. If patient noted with a risk of falling, they received education on strength, gait, and balance training to prevent future risk of falling. Portions of this note may have been carried over from the previous visit and updated as appropriate. Please note this office utilizes paper charting in addition to the electronic medical record. A list of current medications, vitals, and PMH is available there as the clinical staff outside of myself do not have access to [employer] charting during the clinic day operations. As part of providing quality comprehensive care the current medications, vitals, and PMH were reviewed in the paper chart. Assessment and Plan Assessment and Plan (1) Lumbar stenosis with neurogenic claudication: Assessment and Plan: The patient has had over 3 months of moderate to severe low back and RLE pain with functional impairment and inadequate response to conservative care including NSAIDS (unless there are contraindication such as concurrent blood thinners), multiple oral or topical pain medications, and home exercise program/physical therapy.? Patient has completed >6 weeks of guided home exercise program and/or formal physical therapy program without relief of their symptoms.? I have reviewed the imaging of the lumbar spine and no red flags were identified.? The Oswestry Disability Index was completed, and the patient scored a 28%.? (2) Lumbar spondylosis: (3) Sacroiliitis: (4) Chronic prescription opiate use: Assessment and Plan: I feel these medications are improving the patient's quality of life and allow them to tolerate activities of daily living as well as participate in recreational activity.? The patient does not report intolerable side effects. The patient is NOT opioid naive and non-pharmacologic and non-opioid treatment has failed to significantly relieve the patient's pain and improve functionality. The patient has a diagnosis that is related to a somatic or visceral pain etiology. ? ?? I reviewed with the patient the potential risks and side effects with the use of? opioid medications including but not limited to respiratory depression,? sedation, and even . Within the last 12 months I have verified the patient has access to naloxone should? these effects occur. The patient was advised to let? their family know they had Naloxone in case they would need to administer? the medication. I advised the patient to avoid the use of any other? sedation substances including alcohol, THC, and benzodiazepines while? taking opioid medications due to the risk of compounding side effects and? detrimental outcomes. within the last 12 months I have reviewed the T[employer] I ASSISTANT, pain treatment agreement and urine drug screen.? ?? A drug screen was completed within the last year, and no aberrancies were noted regarding their use of controlled substances. The patient understands they are subject to the terms and conditions of the pain contract that they have signed. ? ?? I have checked an OARRS report on this patient today and there are no aberrancies noted in the prescribing history.? Plan dc flexeril, gabapentin, hydrocodone continue prn tylenol continue HEP as tolerated f/u 3 months, sooner if needed
--- OUTSIDE RECORDS SUMMARY | 2025-02-07 13:53 | XMS_ITS | Encounter Summary ---
Author Organization [employer] Address [facility] [id number] [address] [place] [address] Care Team Providers Care Mineralogy Professor Name Role Phone Mitchel Henderson MD Primary Care Provider [phone] Reason for Visit * Reason Comments Med Refill Encounter Details Date Type Department Care Team (Late st Contact Info) Description 10/18/2023 Refill [facility] [address] [place] [address] [address] [place] [address] Mitchel Henderson MD [address] [place] [address], [address] [place], [place] [id number] Social History Tobacco Use Types Packs/Day Years [...] week 09/25/2022 How often do you attend rastafari or congregational serv ices? Never 09/25/2022 Do you belong to any clubs o r organizations such as rastafari groups, unions, fraternal or athletic groups, or [...] Answer Date Recorded Total Score 8 02/28/2023 [facility] [place] [facility] Occupat ional Health - Occupational Stress [...] EDT Office Visit [facility] [address] [place] [address] [address] [place] [id number] Mitchel Henderson MD [address] [place] [address], [address] [place] [address] documented as of this encounter Visit Diagnoses Not on filedocumented in this encounter Additional Health Concerns Assessment Noted Time PHQ-9 Depression Total Score: 8 02/29/20 23 8:00 AM EDT documented as of this encounter Care Teams Mineralogy Professor Relationship Specialty Start Date End Date Mitchel Henderson MD [address] [place] [address], [address] [place] [address] PCP - General Pediatrics 09/18/21 documented as of this encounter
--- OUTSIDE RECORDS SUMMARY | 2025-02-07 13:54 | XMS_ITS | Clinical Summary ---
Author Organization [facility] Address [address] [place], [place] [address] Care Team Providers Care Media Professional Name Role Phone Mitchel Henderson MD Primary [...] 1 tablet by mouth once daily. 0 09/25/19 13 Active dicyclomine (BENTYL) 20 mg tablet 1 06/07/20 19 Active lisinopril (ZESTRIL,PRINIV IL) 30 mg tablet Take 30 mg by mouth once daily. 10/09/19 21 Active albuterol HFA (PROVENTIL HFA, VENTOLIN HFA) 90 mcg/actuation inhaler Inhale 2 Puffs as instructed every 6 hours as needed. Active INCRUSE ELLIPTA 62.5 mcg/actuation inhaler INHALE 1 PUFF BY MOUTH IN THE MORNING 04/29/20 23 Active hydroCHLOROthia zide 12.5 mg tablet Take one(1) tablet daily. 02/29/20 23 Active Etanercept (ENBREL SURECLICK) 50 mg/mL (1 mL)Indications: Rheumatoid factor positive,Positi ve anti-CCP test,JARED positive,Rheuma toid arthritis of multiple sites without organ or system involvement with positive rheumatoid factor (HCC),Abnormal finding on imaging 50mg sq injection once a week. Hold if on antibiotics or ill 4 mL 09/09/19 24 Active ergocalciferol 50,000 unit capsule (VITAMIN D2, DRISDOL)Indicat ions:Vitamin D deficiency (take by mouth with food twice a week, ONE CAPSULE ON TUESDAY AND ONE ON TUESDAY) FOR A TOTAL OF 8 WEEKS. Then once a week thereafter. 20 capsule 1 09/07/19 25 Active metFORMIN ER (GLUCOPHAGE XR) 500 mg 24 hr tablet Take 500 mg by mouth. 10/18/19 24 Active leflunomide (ARAVA) 20 mg tabletIndicatio ns:Rheumatoid arthritis of multiple sites without organ or system involvement with positive rheumatoid factor (HCC) TAKE 1 TABLET BY MOUTH DAILY WITH FOOD. DO NOT TAKE IF ON ANTIBIOTICS OR . 90 tablet 3 11/20/19 25 Active cyclobenzaprine (FLEXERIL) 5 mg tabletIndicatio ns:Leg cramping Take 1 tablet by mouth at bedtime as needed. 90 tablet 3 11/20/19 25 Active predniSONE (DELTASONE) 5 mg tabletIndicatio ns:Rheumatoid arthritis of multiple sites without organ or system involvement with positive rheumatoid factor (HCC),Elevated sed rate,Elevated C-reactive protein (CRP) Day 1=6tabs with food, Day 2=5tabs, Day 3=4tabs, Day 4=3tabs, Day 5=2tabs, Day 6=1tab, No NSAIDs on med 21 tablet 1 01/24/20 25 Active predniSONE (DELTASONE) 5 mg tabletIndicatio ns:Rheumatoid arthritis of multiple sites without organ or system involvement with positive rheumatoid factor (HCC),Elevated sed rate,Elevated C-reactive protein (CRP) Day 1=6tabs with food, Day 2=5tabs, Day 3=4tabs, Day 4=3tabs, Day 5=2tabs, Day 6=1tab, No NSAIDs on med 21 tablet 1 12/01/19 25 025 Discontinued Active Problems Problem Noted Date Diagnosed Date [...] deviation of finger of right hand 09/23/19 18 Cigarette nicotine dependence without complicati on 03/17/2017 [...] Encounters Date Type Department Care Team Description 01/22/2025 Refill Rheumatology [address] [place] [address] Rosy Raya MD Refill Request 11/30/2024 Refill Rheumatology [address] [place] [address] Rosy Raya MD Refill Request 11/24/2024 Telephone Rheumatology [address] [place] [address] Rosy Raya MD Results 11/19/2024 12:40 PM EDT Office Visit Rheumatology [address] [facility] [place] [id number] Rosy Raya MD Rheumatoid arthritis of multiple [...] contracture 11/13/2024 Travel 11/13/2024 Refill Rheumatology [address] [place] [address] Rosy Raya MD Refill Request from Last [...] is lower risk 4 05/09/2023 Data from: https://www.neighborhoodatlas.[facility]/. Last address used for calculation [address] 05/09/2023 Sex and Gender Information [...] Dise ase Visit 1978 Anxiety Screening 1978 Depression Screening 1978 HIV Screening 1978 [...] PCV20 or PCV21) 07/02/2024 07/02/2019, 01/15/2016, 02/03/2015 Medicare Advantage Annual We llness Visit 08/22/2024 Influenza Vaccine (Season Ended) 2025 06/09/2021, 06/11/2020, 09/04/2018, Additional history exists Diabetes Screening 11/20/2027 11/19/2024, 0 08/30/2024, 04/26/2024, Additional history exists Lipid Screening 03/08/2028 03/08/2023, 02/19, 06/15/2021 Prostate Cancer Screening Discussion 03/08/2028 03/08/2023, 03/08/2022 Hepatitis C Screening Completed 09/25/2012 Medical Devices Implanted Type Area Combination Saw Operator Device Identifier Shelf Expiration Date Model / Serial / Lot [id number]-[id number]-Kind Implant - [id number] Implanted:Qty: 3 on 07/03/2013 at [facility] Implant Right: Bone - Foot [employer] [id number] L / / N/A Description:1.1 GUIDE WIRE L ZIGGY Xtt-Oy-Y-Kind Implant - [id number] Implanted:Qty: 2 on 07/03/2013 at [facility] Implant [employer] [id number] N [...] D 25 HYDROXY (11/19/2024 12:54 PM EDT) Vitamin D 25 Hydroxy 57.8 31.0 - 80.0 ng/mL 11/19/2024 6:43 PM EDT [facility] Blood BLOOD SPECIMEN / Unknown Venipuncture / Unknown 11/19/2024 12:54 PM EDT 11/19/2024 12:54 PM EDT us Rosy Raya MD LABORATORY Final Result Performing Organization Address [facility]/ZIP Co de Phone Number [facility] [address] * (ABNORMAL) SEDIMENTATION RATE, WESTERGREN (11/19/2024 12:54 PM EDT) Sed Rate, Westergren 17(H) 0 - 15 mm/hr 11/19/2024 5:14 PM EDT [facility] Blood BLOOD SPECIMEN / Unknown Venipuncture / Unknown 11/19/2024 12:54 PM EDT 11/19/2024 12:54 PM EDT us Rosy Raya MD LABORATORY Final Result [facility] [address] [facility][Note 2] Desk [address] [place] [address], [place] * (ABNORMAL) COMPREHENSIVE METABOLIC PANEL (11/19/2024 12:54 PM EDT) Pathologist [facility] Protein, Total 7.4 6.3 - 8.0 g/dL 11/19/2024 7:32 PM EDT [facility] Albumin 4.2 3.9 - 4.9 g/dL 11/19/2024 7:32 PM EDT [facility] Calcium, Total 9.8 8.5 - 10.2 mg/dL 11/19/2024 7:32 PM EDT [facility] Bilirubin, Total 0.2 0.2 - 1.3 mg/dL 11/19/2024 7:32 PM EDT [facility] Alkaline Phosphatase 62 38 - 113 U/L 11/19/2024 7:32 PM EDT [facility] AST 40 14 - 40 U/L 11/19/2024 7:32 PM EDT [facility] ALT 72(H) 10 - 54 U/L 11/19/2024 7:32 PM EDT [facility] Glucose 191(H) 74 - 99 mg/dL 11/19/2024 7:32 PM EDT [facility] Comment: The [place] Diabetes Association (ADA) provides guidance for cutoff [...] Standards of Medical Care in Diabetes 2016, [place] Diabetes Association. Diabetes Care. 2016.39(Suppl 1). BUN 16 9 - 24 mg/dL 11/19/2024 7:32 PM EDT [facility] Creatinine 0.74 0.73 - 1.22 mg/dL 11/19/2024 7:32 PM EDT [facility] Sodium 134(L) 136 - 144 mmol/L 11/19/2024 7:32 PM EDT [facility] Potassium 4.5 3.7 - 5.1 mmol/L 11/19/2024 7:32 PM EDT [facility] Chloride 98 98 - 107 mmol/L 11/19/2024 7:32 PM EDT [facility] CO2 22 22 - 30 mmol/L 11/19/2024 7:32 PM EDT [facility] Anion Gap 14 8 - 15 mmol/L 11/19/2024 7:32 PM EDT [facility] Estimated Glomerular Filtration Rate 101 >=60 mL/min/1.7 3m 11/19/2024 7:32 PM EDT [facility] Comment:Estimated Glomerular Filtration Rate (eGFR) is [...] MD LABORATORY Final Result Performing Organization Address [facility]/State/ZIP Co de Phone Number [facility] [address] [place] [address], * CREATINE KINASE/CK (11/19/2024 12:54 PM EDT) CK 114 51 - 298 U/L 11/19/2024 7:32 PM EDT [facility] Blood BLOOD SPECIMEN / Unknown Venipuncture / Unknown 11/19/2024 12:54 PM EDT 11/19/2024 12:54 PM EDT us Rosy Raya MD LABORATORY Final Result Performing Organization Address [facility]/ZIP Co de Phone Number [facility] [address] [place] [address], * (ABNORMAL) COMPLETE BLOOD COUNT (11/19/2024 12:54 PM EDT) WBC 13.60(H) 3.70 - 11.00 k/uL 11/19/2024 4:16 PM EDT [facility] RBC 4.89 4.20 - 6.00 m/uL 11/19/2024 4:16 PM EDT [facility] Hemoglobin 15.9 13.0 - 17.0 g/dL 11/19/2024 4:16 PM EDT [facility] Hematocrit 46.7 39.0 - 51.0 % 11/19/2024 4:16 PM EDT [facility] MCV 95.5 80.0 - 100.0 fL 11/19/2024 4:16 PM EDT [facility] MCH 32.5 26.0 - 34.0 pg 11/19/2024 4:16 PM EDT [facility] MCHC 34.0 30.5 - 36.0 g/dL 11/19/2024 4:16 PM EDT [facility] RDW-CV 13.0 11.5 - 15.0 % 11/19/2024 4:16 PM EDT [facility] Platelet Count 251 150 - 400 k/uL 11/19/2024 4:16 PM EDT [facility] MPV 10.1 9.0 - 12.7 fL 11/19/2024 4:16 PM EDT [facility] Absolute nRBC <0.01 <0.01 k/uL 11/19/2024 4:16 PM EDT [facility] Blood BLOOD SPECIMEN / Unknown Venipuncture / Unknown 11/19/2024 12:54 PM EDT 11/19/2024 12:54 PM EDT Rosy Raya MD LABORATORY Final Result [facility] [address] [address], [place] * C-REACTIVE PROTEIN (11/19/2024 12:54 PM EDT) [facility] CRP <0.3 <0.9 mg/dL 11/19/2024 7:32 PM EDT [facility] Blood BLOOD SPECIMEN / Unknown Venipuncture / Unknown 11/19/2024 12:54 PM EDT 11/19/2024 12:54 PM EDT Rosy Raya MD LABORATORY Final Result [facility] [place] [id number], [place] * (ABNORMAL) ALDOLASE BLD (11/19/2024 12:54 PM EDT) [facility] Aldolase 11.3(H) 1.5 - 8.1 U/L 11/19/2024 8:04 PM EDT [facility] Comment:This test was develo ped, and its performance characteristics determined by the [facility] Department of Pathology and Laboratory Medicine. It has not been cleared or approved by the FDA. The [facility] Department of Pathology and Laboratory Medicine is regulated under CLIA as qualified to perform high- complexity testing. This test is used for clinical purposes. It should not be regarded as investigational or for research. Blood BLOOD SPECIMEN / Unknown Venipuncture / Unknown 11/19/2024 12:54 PM EDT 11/19/2024 12:54 PM EDT Rosy Raya MD LABORATORY Final Result [facility] [place] [id number], [place] * HEP REMOTE PANEL BL (09/25/2012 11:30 AM EST) [facility] Hep B Core Ab, Total Negative NEGAT [facility] Hep C Antibody IA Negative NEGAT [facility] HBsAg Negative NEGAT [facility] Hep B Surface Ab, Qual Negative NEGAT [facility] Comment: A negative Hepatitis B Surface Antibody is indicative of: 1)no prior exposure to HBV, 2)lack of antibody response to an acute or chronic HBV infection, 3)lack of antibody response to HBV vaccination, or, 4)loss of immunity that followed either vaccination or infection. Blood specimen (specimen) BLOOD SPECIMEN / Unknown 09/25/2012 11:30 AM EST 09/25/2012 11:47 AM EST us Rosy Raya MD LABORATORY Final Result [facility] [address] [place] [address] from Last 3 Months or Most Recently Relevant to Health Maintenance Insurance [facility] MEDICARE ADVANTAGE HMO Care Teams Media Professional Relationship Specialty Start Date End Date Mitchel Henderson MD [address] [place] [address], [address] [place], [place] [id number] PCP - General Internal Medicine 11/30/21
--- OUTSIDE RECORDS SUMMARY | 2025-02-07 13:54 | XMS_ITS | Encounter Summary ---
Author Organization [facility] Address [address] [place] [address] Care Team Providers Care Machine Tool Builder Name Role Phone Mitchel Henderson MD Primary Care Provider + Source Comments In the event this information is protected by the Federal Confidentiality of Alcohol and Drug AbusePatient Records regulations: The Federal rules restrict any use of the information to criminally investigate or prosecute any alcohol or drug abuse patient.[facility] Encounter Details Date Type Department Care Team (Late st Contact Info) Description 04/24/2024 Patient Msg Rheumatology [address] [place], [place] [id number] Rosy Raya MD [address] [place], [place] [phone] Appointment Request Social History Tobacco Use Types [...] is lower risk 4 05/09/2023 Data from: https://www.neighborhoodatlas.medicine.[facility].edu/. Last address used for calculation [place] [...] on filedocumented in this encounter Care Teams Machine Tool Builder Relationship Specialty Start Date End Date Mitchel Henderson MD [address] [place] [address], [address] [place] [address] PCP - General Internal Medicine 11/30/21 documented as of this encounter
--- OUTSIDE RECORDS SUMMARY | 2025-02-07 13:54 | XMS_ITS | Encounter Summary ---
Author Organization [facility] Address [address] [place] [address] Care Team Providers Care Audiovisual Librarian Name Role Phone Edgar Mendoza DO Primary Care Provider [phone] Leonela Silverman CNP Primary Care Provider [phone] Mitchel Henderson MD Primary Care Provider + Source Comments In the event this information is protected by the Federal Confidentiality of Alcohol and Drug AbusePatient Records regulations: The Federal rules restrict any use of the information to criminally investigate or prosecute any alcohol or drug abuse patient.[facility] Encounter Details Date Type Department Care Team (Late st Contact Info) Description 06/01/2016 Get Medical Advice Rheumatology [address] [place], [place] [id number] Rosy Raya MD [address] [place] [address] RE: Non-Urgent Medical Question Social [...] on filedocumented in this encounter Care Teams Audiovisual Librarian Relationship Specialty Start Date End Date Edgar Mendoza DO [address] [place] [address] PCP - General Family Medicine 07/21/12 06/20/19 Leonela Silverman CNP [address] [place] [address] PCP - General Family Medicine 06/21/19 11/29/21 Mitchel Henderson MD [address] [place] [address], 1 [place] [address] PCP - General Internal Medicine 11/30/21 documented as of this encounter
--- OUTSIDE RECORDS SUMMARY | 2025-02-07 13:54 | XMS_ITS | Encounter Summary ---
Author Organization [employer] Address [id number] [address] [place] [address] Care Team Providers Care Swimming Pool Cleaner Name Role Phone Mitchel Henderson MD Primary Care Provider [phone] Reason for Visit * Reason Comments Med Refill Encounter Details Date Type Department Care Team (Late st Contact Info) Description 01/17/2024 Refill [facility] Internal Medicine/Pediatrics [address] [place] [address] 1 [place] [address] Mitchel Henderson MD [address] [place] [address], 1 [place], [place] [phone] Social History Tobacco Use Types Packs/Day Years [...] week 09/25/2022 How often do you attend pentecostal or methodist serv ices? Never 09/25/2022 Do you belong to any clubs o r organizations such as pentecostal groups, unions, fraternal or athletic groups, or [...] Answer Date Recorded Total Score 8 02/28/2023 [facility] [place] of Occupat ional Health - Occupational Stress [...] EDT Office Visit [facility] Internal Medicine/Pediatrics [address] [place] [address] [address] [place] [address] Mitchel Henderson MD [address] [place] [address], [address] [place], [place] [id number] documented as of this encounter Visit Diagnoses Not on filedocumented in this encounter Additional Health Concerns Assessment Noted Time PHQ-9 Depression Total Score: 8 02/29/20 23 8:00 AM EDT documented as of this encounter Care Teams Swimming Pool Cleaner Relationship Specialty Start Date End Date Mitchel Henderson MD [address] [place] [address], [address] [place] [address] PCP - General Pediatrics 09/18/21 documented as of this encounter
--- OUTSIDE RECORDS SUMMARY | 2025-02-07 13:54 | XMS_ITS | Patient Health Record ---
Author Organization [facility] Address [address] [place] [address] Care Team Providers Care Check Pilot Name Role Phone Mitchel Henderson MD Primary [...] Status Risk Notes Problem Cervical disc disease (590228836) Cervical disc disease (M50.90) Active confirmed Problem Herniation of nucleus pulposus of cervical intervertebral disc (738353502694065) Herniated nucleus pulposus, C5-6 (M50.222) Active confirmed Problem Displacement of cervical intervertebral disc without myelopathy (85113052) Herniated nucleus pulposus, C6-7 (M50.223) Active confirmed Plan Of Treatment No Information Insurance Providers Payer Name Payer Address Payer Phone Subscriber Number Group Number Insured Name Patient Relationship to Insured Coverage Start Date Coverage End Date [employer] MEDICARE ADVANTAGE [address] [address] [place] [phone] [id number] Allen Gutiérrez Self - patient is the insured 2 Medical (General) History Medical History History ICD Code hypertension rheumatoid arthritis Surgical History Surgery Date(Month/Year) rotator cuff tear repair 2019 carpal tunnel release 2019
--- OUTSIDE RECORDS SUMMARY | 2025-02-07 13:54 | XMS_ITS | Encounter Summary ---
Author Organization [facility] Address [facility]-[id number] [address] [place] [address] Care Team Providers Care Biomedical Equipment Tech Name Role Phone Mitchel Henderson MD Primary Care Provider [phone] Encounter Details Date Type Department Care Team (Late st Contact Info) Description 09/13/2022 Orders Only [facility] Internal [facility] [address] [place] [address] External, Scanning Provider Social History [...] declined 09/11/2021 How often do you attend restorationism or roman catholic serv ices? Never 09/11/2021 Do you belong to any clubs o r organizations such as restorationism groups, unions, fraternal or athletic groups, or [...] Answer Date Recorded Total Score 4 02/25/2022 [facility] of Occupat ional Health [...] Recorded Do you need help finding a steward health care system career center and/or a training program? No [...] Office Visit [facility]/Pediatric[facility] [address] [place] [address] 1 [place] [address] Mitchel Henderson MD [address] [place] [address], [address] [place] [address] documented as of this encounter [...] L ORDERABLES Final Result Performing Organization Address City/[facility]/ZIP Co de Phone Number MANUALLY TRANSCRIBED RESULTS * Multiple labs (09/08/2022) 09/08/2022 us Scanning Provider External ME IMAGING Final Result Performing Organization Address [facility] Co de Phone Number MANUALLY TRANSCRIBED [...] documented as of this encounter Care Teams Biomedical Equipment Tech Relationship Specialty Start Date End Date Mitchel Henderson MD [address] [place] [address], [address] [place] [address] PCP - General Pediatrics 09/18/21 documented as of this encounter
--- OUTSIDE RECORDS SUMMARY | 2025-02-07 13:54 | XMS_ITS | Encounter Summary ---
Author Organization [facility] Address [address] [place] [address] Care Team Providers Care Cable Weaver Name Role Phone Leonela Silverman CNP Primary Care Provider [phone] Mitchel Henderson MD Primary Care Provider + Source Comments In the event this information is protected by the Federal Confidentiality of Alcohol and Drug AbusePatient Records regulations: The Federal rules restrict any use of the information to criminally investigate or prosecute any alcohol or drug abuse patient.[facility] Encounter Details Date Type Department Care Team (Late st Contact Info) Description 11/28/2019 Patient Msg Rheumatology [address] [place], [place] [phone] Rosy Raya MD [address] [place], [place] [phone] RE: Appointment Cancellation Request Social History Tobacco [...] on filedocumented in this encounter Care Teams Cable Weaver Relationship Specialty Start Date End Date Leonela Silverman CNP [facility] [place] [address] PCP - General Family Medicine 06/21/19 11/29/21 Mitchel Henderson MD [address] [place] [address], 1 [place] [address] PCP - General Internal Medicine 11/30/21 documented as of this encounter
--- OUTSIDE RECORDS SUMMARY | 2025-02-07 13:54 | XMS_ITS | Encounter Summary ---
Author Organization [facility] Address [address] [place] [address] Care Team Providers Care Toll Line Inspector Name Role Phone Mitchel Henderson MD Primary Care Provider + Source Comments In the event this information is protected by the Federal Confidentiality of Alcohol and Drug AbusePatient Records regulations: The Federal rules restrict any use of the information to criminally investigate or prosecute any alcohol or drug abuse patient.[facility] Reason for Visit * Reason Onset Date Comments Refill Request 01/22/2025 Encounter Details Date Type Department Care Team (Late st Contact Info) Description 01/22/2025 Refill Rheumatology [address] [place] [address] Rosy Raya MD [address] [place] [address] Refill Request Social History Tobacco Use Types [...] is lower risk 4 05/09/2023 Data from: https://www.neighborhoodatlas.medicine.[facility].edu/. Last address used for calculation [address] 05/09/2023 Sex and Gender Information Value Date [...] Estela Kwan Ma documented in this encounter Miscellaneous Notes * Telephone Encounter - Rosy Raya MD - 01/23/2025 4:33 PM EDT Notify patient medication sent as requested Thank you. Patient's request for medication is as follows: Requested Prescriptions Pending Prescriptions Disp Refills ??? predniSONE (DELTASONE) 5 mg tablet 21 tablet 1 Sig: Day 1=6tabs with food, Day 2=5tabs, Day 3=4tabs, Day 4=3tabs, Day 5=2tabs, Day 6=1tab, No NSAIDs on med Prescription(s) as above. Please process accordingly. Rosy Raya MD * Telephone Encounter - LeeanneWatt, RiccoRADHA - 01/22/2025 8:37 AM EDT Images from the original note were not included. Most recent Rheumatology visit: 11/19/2024 (with Rosy Raya) Last Bone Density on file: 04/18/2023 Rheumatology Care Team: None on file Recent Office Visits - This Specialty 11/19/2024 Rheumatoid arthritis of multiple sites without organ or system involvement with positiverheumatoid factor (HCC) Rheumatology Rosy Raya MD 04/26/2024 Rheumatoid arthritis of multiple sites without organ or system involvement with positiverheumatoid factor (HCC) Rheumatology Rosy Raya MD 11/17/2023 Rheumatoid arthritis of multiple sites without organ or system involvement with positiverheumatoid factor (HCC) Rheumatology Rosy Raya MD Upcoming Rheumatology Appointments - Next 365 Days No appointments to display CBC: Latest Ref Rng & Units 04/26/2024 11/19/2024 CBC WBC 3.70 - 11.00 k/uL 10.34 13.60 Hemoglobin 13.0 - 17.0 g/dL 15.4 15.9 Hematocrit 39.0 - 51.0 % 45.5 46.7 Platelet Count 150 - 400 k/uL 241 251 Vitamin D: Latest Ref Rng & Units 04/26/2024 11/19/2024 Vitamin D Vitamin D 25 Hydroxy 31.0 - 80.0 ng/mL 36.0 57.8 LFT: Latest Ref Rng & Units 04/26/2024 11/19/2024 CMP Sodium 136 - 144 mmol/L 137 134 Potassium 3.7 - 5.1 mmol/L 4.6 4.5 Chloride 98 - 107 mmol/L 101 98 CO2 22 - 30 mmol/L 22 22 Glucose 74 - 99 mg/dL 198 191 BUN 9 - 24 mg/dL 8 16 Creatinine 0.73 - 1.22 mg/dL 0.59 0.74 Calcium 8.5 - 10.2 mg/dL 9.6 9.8 AST 14 - 40 U/L 28 40 ALT 10 - 54 U/L 49 72 Alkaline Phosphatase 38 - 113 U/L 59 62 Hepatic Function: Creatinine: Latest Ref Rng & Units 04/26/2024 11/19/2024 Creatinine Creatinine 0.73 - 1.22 mg/dL 0.59 0.74 ESR/CRP: Latest Ref Rng & Units 04/26/2024 11/19/2024 ESR, WSR WSR 0 - 15 mm/hr 26 17 Latest Ref Rng & Units 04/26/2024 11/19/2024 CRP CRP <0.9 mg/dL 0.4 <0.3 Uric Acid: None on file in the last 6 months Open Standing (Multiple Instance) Lab Orders None Open Future (Single Instance) Lab Orders Expected Expires Ordered COMPREHENSIVE METABOLIC PANEL [SQCMP] 02/23/25 11/24/25 11/24/24 Auth. provider: Rosy Raya MD Assoc. diagnoses: Elevated LFTs COMPLETE BLOOD COUNT [SQCBC] 02/23/25 11/24/25 11/24/24 Auth. provider: Rosy Raya MD Assoc. diagnoses: Anemia of chronic disease SEDIMENTATION RATE, WESTERGREN [SQWSR] 02/23/25 11/24/25 11/24/24 Auth. provider: Rosy Raya MD Assoc. diagnoses: Elevated sed rate, Elevated C-reactive protein (CRP) C-REACTIVE PROTEIN [SQCRP] 02/23/25 11/24/25 11/24/24 Auth. provider: Rosy Raya MD Assoc. diagnoses: Elevated sed rate, Elevated C-reactive protein (CRP) VITAMIN D 25 HYDROXY [SQVITD] 02/23/25 11/24/25 11/24/24 Auth. provider: Rosy Raya MD Assoc. diagnoses: Vitamin D deficiency documented in this encounter Plan of Treatment Not on file documented as of this encounter Visit Diagnoses Diagnosis Rheumatoid arthritis of multiple sites without organ or system involvement with positive rheumatoid factor (HCC) Elevated sed rate Elevated sedimentation rate Elevated C-reactive protein (CRP) documented in this encounter Care Teams Toll Line Inspector Relationship Specialty Start Date End Date Mitchel Henderson MD [address] [place] [address], 1 [place] [address] PCP - General Internal Medicine 11/30/21 documented as of this encounter
--- OUTSIDE RECORDS SUMMARY | 2025-02-07 13:54 | XMS_ITS | Encounter Summary ---
Author Organization [facility] Address [address] [place] [address] Care Team Providers Care Dough Mixer Helper Name Role Phone Herrera Leonela FONTAINE Primary Care Provider [phone] Mitchel Henderson MD Primary Care Provider + Source Comments In the event this information is protected by the Federal Confidentiality of Alcohol and Drug AbusePatient Records regulations: The Federal rules restrict any use of the information to criminally investigate or prosecute any alcohol or drug abuse patient.[facility] Encounter Details Date Type Department Care Team (Late st Contact Info) Description 06/28/2020 Patient Msg Rheumatology [address] [facility] [address] [place], [place] [id number] Rosy Raya MD [address] [place] [address] results Social History Tobacco Use Types Packs/Day [...] on filedocumented in this encounter Care Teams Dough Mixer Helper Relationship Specialty Start Date End Date Leonela Silverman CNP [address] [facility] [place], [place] [id number] PCP - General Family Medicine 06/21/19 11/29/21 Mitchel Henderson MD [address] [place] [address], [address] [place], [place] [id number] PCP - General Internal Medicine 11/30/21 documented as of this encounter
--- OUTSIDE RECORDS SUMMARY | 2025-02-07 13:54 | XMS_ITS | Encounter Summary ---
Author Organization [employer] [facility] tem Address [facility]-[id number] [address] [place] [address] Care Team Providers Care Edging Machine Setter Name Role Phone Mitchel Henderson MD Primary Care Provider [phone] Encounter Details Date Type Department Care Team (Late st Contact Info) Description 10/12/2021 Orders Only [facility] Internal Medicine/Pediatrics [address] [place] [address] 1 [place] [address] Mitchel Henderson MD [address] [place] [address], [address] [place], [place] [id number] Cervical radiculopathy Social History Tobacco Use Types [...] declined 09/11/2021 How often do you attend jain or samaritan serv ices? Never 09/11/2021 Do you belong to any clubs o r organizations such as jain groups, unions, fraternal or athletic groups, or [...] Answer Date Recorded Total Score 3 09/11/2021 [facility] of Occupat ional Health - Occupational Stress [...] Office Visit [facility] [address] [place] [address] [address] [place] [address] Mitchel Henderson MD [address] [place] [address], [address] [place] [address] documented as of this encounter [...] documented as of this encounter Care Teams Edging Machine Setter Relationship Specialty Start Date End Date Mitchel Henderson MD [address] [place] [address], [address] [place] [address] PCP - General Pediatrics 09/18/21 documented as of this encounter
--- OUTSIDE RECORDS SUMMARY | 2025-02-07 13:54 | XMS_ITS | Encounter Summary ---
Author Organization [employer] [facility] tem Address [facility]-[id number] [address] [place] [address] Care Team Providers Care Restoration Officer Name Role Phone Mitchel Henderson MD Primary Care Provider [phone] Encounter Details Date Type Department Care Team (Late st Contact Info) Description 03/22/2022 Orders Only [facility] Medicine/[facility] [address] [place] [address] Darcie Garibay RMA Parotid mass [...] declined 09/11/2021 How often do you attend anabaptist or druze serv ices? Never 09/11/2021 Do you belong to any clubs o r organizations such as anabaptist groups, unions, fraternal or athletic groups, or [...] Answer Date Recorded Total Score 4 02/25/2022 [facility] of Occupat ional Health - Occupational Stress [...] Recorded Do you need help finding a [facility] career center and/or a training program? [...] EDT Office Visit [facility] [address] [place] [address] [address] [place] [address] Mitchel Henderson MD [address] [place] [address], [address] [place], [place] [id number] documented as of this encounter Procedures Procedure [...] documented as of this encounter Care Teams Restoration Officer Relationship Specialty Start Date End Date Mitchel Henderson MD [address] [place] [address], [address] [place], [place] [id number] PCP - General Pediatrics 09/18/21 documented as of this encounter
--- OUTSIDE RECORDS SUMMARY | 2025-02-07 13:54 | XMS_ITS | Encounter Summary ---
[facility] Address [facility]-[id number] [address] [place] [address] Care Team Providers Care Hedge Trimmer Name Role Phone Mitchel Henderson MD Primary Care Provider [phone] Encounter Details Date Type Department Care Team (Late st Contact Info) Description 12/27/2024 Orders Only [facility] [address] [place] [address] External, Scanning Provider Social History Tobacco Use Types Packs/Day Years Used Date Smoking Tobacco: Every Day Cigarettes 1.6 46.5 Started: 08/22/1978 Smokeless Tobacco: Never Alcohol Use [...] week 09/25/2022 How often do you attend jewish or judaism serv ices? Never 09/25/2022 Do you belong to any clubs o r organizations such as jewish groups, unions, fraternal or athletic groups, or [...] Answer Date Recorded Total Score 4 03/01/2024 [facility] of Occupat ional Health - Occupational [...] Recorded Do you need help finding a [facility] career center and/or a training [...] EDT Office Visit [facility] [address] [place] [address] [address] [place] [phone] Mitchel Henderson MD [address] [place] [address], [address] [place] [address] documented as of this encounter [...] documented as of this encounter Care Teams Hedge Trimmer Relationship Specialty Start Date End Date Mitchel Henderson MD [address] [place] [address], [address] [place] [address] PCP - General Pediatrics 09/18/21 documented as of this encounter
--- OUTSIDE RECORDS SUMMARY | 2025-02-07 13:54 | XMS_ITS | Clinical Summary ---
Author Organization [facility] Address [address] [place] [address] Care Team Providers Care Two Way Radio Installer Name Role Phone Mitchel Henderson MD Primary Care Provider [phone] Allergies Active Allergy Reactions Criticality Noted Date Comments Bupropion Rash Low 09/25/2012 Other Reaction(s): hives Buspirone 09/25/2012 Other Reaction(s): Unknown Can't remember Methotrexate GI intolerance,Unknown 09/25/2012 Other Reaction(s): Other (See Comments) Eldon spaced out dizziness dizziness Oxycodone 05/28/2020 Tunnel [...] exists Insurance [employer] MEDICARE Care Teams Two Way Radio Installer Relationship Specialty Start Date End Date Mitchel Henderson MD PCP - General Family Medicine 06/15/23
--- OUTSIDE RECORDS SUMMARY | 2025-02-07 13:54 | XMS_ITS | Encounter Summary ---
Author Organization [facility] Address [address] [place] [address] Care Team Providers Care Oral Surgery Technician Name Role Phone Herrera Leonela FONTAINE Primary Care Provider [phone] Mitchel Henderson MD Primary Care Provider + Source Comments In the event this information is protected by the Federal Confidentiality of Alcohol and Drug AbusePatient Records regulations: The Federal rules restrict any use of the information to criminally investigate or prosecute any alcohol or drug abuse patient.[facility] Encounter Details Date Type Department Care Team (Late st Contact Info) Description 11/28/2019 Patient Msg Rheumatology [address] [facility] [address] [place], [place] [phone] Rosy Raya MD [address] [place] [address] update Social History Tobacco Use Types Packs/Day [...] Author No 02/13/2015 2:15 PM EDT Estela Kwna Ma * Are you blind or do [...] Assessment Author No 02/13/2015 2:15 PM EDT LobiotzeynepEstela landa Ma * Because of a physical, [...] on filedocumented in this encounter Care Teams Oral Surgery Technician Relationship Specialty Start Date End Date Leonela Silverman CNP [address] [facility] [place], [place] [phone] PCP - General Family Medicine 06/21/19 11/29/21 Mitchel Henderson MD [address] [place] [address], 1 [place], [place] [id number] PCP - General Internal Medicine 11/30/21 documented as of this encounter
--- OUTSIDE RECORDS SUMMARY | 2025-02-07 13:54 | XMS_ITS | Encounter Summary ---
Author Organization [facility] Address [address] [place] [address] Care Team Providers Care Dining Car Conductor Name Role Phone Leonela Silverman CNP Primary Care Provider [phone] Mitchel Henderson MD Primary Care Provider + Source Comments In the event this information is protected by the Federal Confidentiality of Alcohol and Drug AbusePatient Records regulations: The Federal rules restrict any use of the information to criminally investigate or prosecute any alcohol or drug abuse patient.[facility] Encounter Details Date Type Department Care Team (Late st Contact Info) Description 06/23/2020 Patient Msg Rheumatology [address] [place], [place] [phone] Rosy Raya MD [address] [place] [address] please complete nonfasting labs Social History Tobacco [...] on filedocumented in this encounter Care Teams Dining Car Conductor Relationship Specialty Start Date End Date Leonela Silverman CNP [facility]1 [place] [address] PCP - General Family Medicine 06/21/19 11/29/21 Mitchel Henderson MD [address] [place] [address], [address] [place] [address] PCP - General Internal Medicine 11/30/21 documented as of this encounter
--- OUTSIDE RECORDS SUMMARY | 2025-02-07 13:54 | XMS_ITS | Encounter Summary ---
Author Organization [facility] Address [address] [place] [address] Care Team Providers Care Configuration Management Administrator Name Role Phone Mitchel Henderson MD Primary Care Provider + Source Comments In the event this information is protected by the Federal Confidentiality of Alcohol and Drug AbusePatient Records regulations: The Federal rules restrict any use of the information to criminally investigate or prosecute any alcohol or drug abuse patient.[facility] Encounter Details Date Type Department Care Team (Late st Contact Info) Description 04/24/2024 Patient Msg Rheumatology [address] [place], [place] [phone] Rosy Raya MD [address] [place], [place] [phone] Appointment Request Social History Tobacco Use Types [...] is lower risk 4 05/09/2023 Data from: https://www.neighborhoodatlas.medicine.[facility].edu/. Last address used for calculation [...] on filedocumented in this encounter Care Teams Configuration Management Administrator Relationship Specialty Start Date End Date Mitchel Henderson MD [address] [place] [address], [address] [place] [address] PCP - General Internal Medicine 11/30/21 documented as of this encounter
--- OUTSIDE RECORDS SUMMARY | 2025-02-07 13:54 | XMS_ITS | Encounter Summary ---
Author Organization [facility] Address [address] [place] [address] Care Team Providers Care Yacht Captain Name Role Phone Edgar Mendoza DO Primary Care Provider [phone] Leonela Silverman CNP Primary Care Provider [phone] Mitchel Henderson MD Primary Care Provider + Source Comments In the event this information is protected by the Federal Confidentiality of Alcohol and Drug AbusePatient Records regulations: The Federal rules restrict any use of the information to criminally investigate or prosecute any alcohol or drug abuse patient.[facility] Encounter Details Date Type Department Care Team (Late st Contact Info) Description 06/13/2013 Patient Msg Medical Records [address] [place] [address] Provider, Cc RE: Patient Registration Completed Social [...] on filedocumented in this encounter Care Teams Yacht Captain Relationship Specialty Start Date End Date Edgar Mendoza DO [address] [place] [address] PCP - General Family Medicine 07/21/12 06/20/19 Leonela Silverman CNP [address] [facility] [place] [address] PCP - General Family Medicine 06/21/19 11/29/21 Mitchel Henderson MD [address] [place] [address], [address] [place] [address] PCP - General Internal Medicine 11/30/21 documented as of this encounter
--- OUTSIDE RECORDS SUMMARY | 2025-02-07 13:54 | XMS_ITS | Encounter Summary ---
Author Organization [facility] Address [address] [place] [address] Care Team Providers Care Tire Stripper Name Role Phone Mitchel Henderson MD Primary Care Provider + Source Comments In the event this information is protected by the Federal Confidentiality of Alcohol and Drug AbusePatient Records regulations: The Federal rules restrict any use of the information to criminally investigate or prosecute any alcohol or drug abuse patient.[facility] Encounter Details Date Type Department Care Team (Late st Contact Info) Description 03/19/2024 Patient Msg Urology [address] [place] [address] Provider, Soren Hill to reach [...] is lower risk 4 05/09/2023 Data from: https://www.neighborhoodatlas.medicine.[facility]/. Last address used for calculation [address] [...] on filedocumented in this encounter Care Teams Tire Stripper Relationship Specialty Start Date End Date Mitchel Henderson MD [address] [place] [address], [place] [address] PCP - General Internal Medicine 11/30/21 documented as of this encounter
--- OUTSIDE RECORDS SUMMARY | 2025-02-07 13:54 | XMS_ITS | Encounter Summary ---
Author Organization [employer] [facility] Address [facility]-[id number] [address] [place] [address] Care Team Providers Care Coal Gasification Technician Name Role Phone Mitchel Henderson MD Primary Care Provider [phone] Reason for Visit * Reason Onset Date Comments Med Refill 02/05/2025 Encounter Details Date Type Department Care Team (Late st Contact Info) Description 02/05/2025 Refill [facility] Internal Medicine/Pediatrics [address] [place] [address] 1 [place] [address] Mitchel Henderson MD [address] [place] [address], [address] [place], [place] [phone] Chronic bronchitis, unspecified [facility] bronch[facility] type [facility]) Social History Tobacco Use Types Packs/Day [...] week 09/25/2022 How often do you attend hindu or uatsdin serv ices? Never 09/25/2022 Do you belong to any clubs o r organizations such as hindu groups, unions, fraternal or athletic groups, or [...] Answer Date Recorded Total Score 4 03/01/2024 [facility] [place] of Occupat ional Health - Occupational Stress [...] Recorded Do you need help finding a [facility] career center and/or a training program? [...] encounter Miscellaneous Notes * Telephone Encounter - ROLLY Vázquez - 02/05/2025 1:50 PM EDT Refill request. documented in this encounter Plan of Treatment Upcoming Encounters Date Type Department Care Team (Late st Contact Info) Description 04/05/2025 9:30 AM EDT Office Visit [facility] [address] [place] [address] [address] [place] [address] Mitchel Henderson MD [address] [place] [address], [address] [place], [place] [id number] documented as of this encounter Visit Diagnoses Diagnosis Chronic bronchitis, unspecified chronic bronchitis type (CMS-HCC) documented in this encounter Additional Health Concerns Assessment Noted Time PHQ-9 Depression Total Score: 4 03/01/20 24 8:00 AM EDT documented as of this encounter Care Teams Coal Gasification Technician Relationship Specialty Start Date End Date Mitchel Henderson MD [address] [place] [address], [address] [place], [place] [id number] PCP - General Pediatrics 09/18/21 documented as of this encounter
--- OUTSIDE RECORDS SUMMARY | 2025-02-07 13:54 | XMS_ITS | Encounter Summary ---
Author Organization [facility] Address [address] [place] [address] Care Team Providers Care Api Architect Name Role Phone Edgar Mendoza DO Primary Care Provider [phone] Leonela Silverman CNP Primary Care Provider [phone] Mitchel Henderson MD Primary Care Provider + Source Comments In the event this information is protected by the Federal Confidentiality of Alcohol and Drug AbusePatient Records regulations: The Federal rules restrict any use of the information to criminally investigate or prosecute any alcohol or drug abuse patient.[facility] Encounter Details Date Type Department Care Team (Late st Contact Info) Description 12/09/2015 Patient Msg Otolaryngology [address] [facility] [place] [address] Yehuda Kiran MD [address] [facility] [address] [place] [address] RE: Appointment Cancellation Request Social History Tobacco [...] on filedocumented in this encounter Care Teams Api Architect Relationship Specialty Start Date End Date Edgar Mendoza DO [address] [place] [address] PCP - General Family Medicine 07/21/12 06/20/19 Leonela iSlverman CNP [address] [place] [address] PCP - General Family Medicine 06/21/19 11/29/21 Mitchel Henderson MD [address] [place] [address], 1 [place] [address] PCP - General Internal Medicine 11/30/21 documented as of this encounter
--- OUTSIDE RECORDS SUMMARY | 2025-02-07 13:54 | XMS_ITS | Encounter Summary ---
Author Organization [facility] Address [address] [place] [address] Care Team Providers Care Mushroom Grower Name Role Phone Leonela Silverman CNP Primary Care Provider Mitchel Henderson MD Primary Care Provider + [...] Info) Description 06/21/2020 Patient Msg Rheumatology [address] [place], [place] [phone] Rosy Raya MD [address] [place] [address] RE: Request an Appointment Social History Tobacco [...] on filedocumented in this encounter Care Teams Mushroom Grower Relationship Specialty Start Date End Date Leonela Silverman CNP [facility]1 [place] [address] PCP - General Family Medicine 06/21/19 11/29/21 Mitchel Henderson MD [address] [place] [address], [address] [place], [place] [id number] PCP - General Internal Medicine 11/30/21 documented as of this encounter
--- OUTSIDE RECORDS SUMMARY | 2025-02-07 13:54 | XMS_ITS | Encounter Summary ---
Author Organization [facility] Address [address] [place] [address] Care Team Providers Care Assembly Operator Name Role Phone Mitchel Henderson MD Primary Care Provider + Source Comments In the event this information is protected by the Federal Confidentiality of Alcohol and Drug AbusePatient Records regulations: The Federal rules restrict any use of the information to criminally investigate or prosecute any alcohol or drug abuse patient.[facility] Encounter Details Date Type Department Care Team (Late st Contact Info) Description 04/23/2024 Patient [facility] -[address] [place] [address] Gillian Payne RPh At your next appointment, choose [facility] Social History Tobacco Use Types [...] is lower risk 4 05/09/2023 Data from: https://www.neighborhoodatlas.[facility]/. Last address used for calculation [address] [...] on filedocumented in this encounter Care Teams Assembly Operator Relationship Specialty Start Date End Date Mitchel Henderson MD [address] [place] [address], 1 [place] [address] PCP - General Internal Medicine 11/30/21 documented as of this encounter
--- OUTSIDE RECORDS SUMMARY | 2025-02-07 13:54 | XMS_ITS | Encounter Summary ---
Author Organization [facility] Address [address] [place] [address] Care Team Providers Care Oncology Admin Name Role Phone Herrera Leonela FONTAINE Primary Care Provider [phone] Mitchel Henderson MD Primary Care Provider + [...] Info) Description 07/18/2019 Patient Msg Rheumatology [address] [facility] [address] [place], [place] [id number] Rosy Raya MD [address] [place], [place] [id number] results Social History Tobacco Use Types Packs/Day [...] on filedocumented in this encounter Care Teams Oncology Admin Relationship Specialty Start Date End Date Leonela Silverman CNP [address] [place] [address] PCP - General Family Medicine 06/21/19 11/29/21 Mitchel Henderson MD [address] [place], [place] [address] [place] [address] PCP - General Internal Medicine 11/30/21 documented as of this encounter
--- OUTSIDE RECORDS SUMMARY | 2025-02-07 13:54 | XMS_ITS | Encounter Summary ---
Author Organization [facility] Address [address] [place] [address] Care Team Providers Care Continuing Education Dean Name Role Phone Mitchel Henderson MD Primary Care Provider [phone] Encounter Details Date Type Department Care Team (Late st Contact Info) Description 09/01/2023 Abstract [facility] [address] [place] [id number] Magalys Hahn NP Social History Tobacco Use [...] on filedocumented in this encounter Care Teams Continuing Education Dean Relationship Specialty Start Date End Date Mitchel Henderson MD PCP - General Family Medicine 06/15/23 documented as of this encounter
--- OUTSIDE RECORDS SUMMARY | 2025-02-07 13:54 | XMS_ITS | Encounter Summary ---
Author Organization [facility] Address [address] [place] [address] Care Team Providers Care State Archivist Name Role Phone Mitchel Henderson MD Primary Care Provider + Source Comments In the event this information is protected by the Federal Confidentiality of Alcohol and Drug AbusePatient Records regulations: The Federal rules restrict any use of the information to criminally investigate or prosecute any alcohol or drug abuse patient.[facility] Reason for Visit * Reason Comments Refill Request Encounter Details Date Type Department Care Team (Late st Contact Info) Description 11/13/2024 Refill Rheumatology [address] [place] [address] Rosy Raya MD [address] [place] [address] Refill Request Social History Tobacco Use Types [...] is lower risk 4 05/09/2023 Data from: https://www.neighborhoodatlas.medicine.[facility]/. Last address used for calculation [address] [...] with positiverheumatoid factor (HCC) Rheumatology Nilda Giron, INSTRUMENT LENS GENERATOR.GLOVE PRESSER Upcoming Rheumatology Appointments - Next 365 Days Visit Type Date Time Department [facility] 11/19/2024 12:40 PM [facility] YEN CBC: None on file in the [...] (HCC) documented in this encounter Care Teams State Archivist Relationship Specialty Start Date End Date Mitchel Henderson MD [address] [place] [address], [place] [address] PCP - General Internal Medicine 11/30/21 documented as of this encounter
--- OUTSIDE RECORDS SUMMARY | 2025-02-07 13:54 | XMS_ITS | Encounter Summary ---
Author Organization [facility] Address [address] [place] [address] Care Team Providers Care Hand Stonecutter Name Role Phone Herrera Leonela FONTAINE Primary Care Provider [phone] Mitchel Henderson MD Primary Care Provider + Source Comments In the event this information is protected by the Federal Confidentiality of Alcohol and Drug AbusePatient Records regulations: The Federal rules restrict any use of the information to criminally investigate or prosecute any alcohol or drug abuse patient.[facility] Encounter Details Date Type Department Care Team (Late st Contact Info) Description 11/14/2020 Patient Msg Rheumatology [address] [facility] [address] [place], [place] [phone] Rosy Raya MD [address] [place] [address] results Social History Tobacco Use [...] N ot on file 07/29/2020 Data from: https://www.neighborhoodatlas.medicine.[facility]/. Last address used for calculation Not [...] on filedocumented in this encounter Care Teams Hand Stonecutter Relationship Specialty Start Date End Date Leonela Silverman CNP [address] [place] [address] PCP - General Family Medicine 06/21/19 11/29/21 Mitchel Henderson MD [address] [place] [address], [address] [place], [place] [id number] PCP - General Internal Medicine 11/30/21 documented as of this encounter
--- OUTSIDE RECORDS SUMMARY | 2025-02-07 13:54 | XMS_ITS | Encounter Summary ---
Author Organization [employer] Address [id number] [address] [place] [address] Care Team Providers Care Paper Wood Cutter Name Role Phone Mitchel Henderson MD Primary Care Provider [phone] Reason for Visit * Reason Comments Med Refill Encounter Details Date Type Department Care Team (Late st Contact Info) Description 03/23/2024 Refill [facility] [address] [place] [address] 1 [place] [address] Mitchel Henderson MD [address] [place] [address], 1 [place], [place] [id number] Social History Tobacco Use Types Packs/Day Years [...] week 09/25/2022 How often do you attend protestant or anabaptist serv ices? Never 09/25/2022 Do you belong to any clubs o r organizations such as protestant groups, unions, fraternal or athletic groups, or [...] Answer Date Recorded Total Score 4 03/01/2024 [facility] of Occupat ional Health - Occupational Stress [...] EDT Office Visit [facility] [address] [place] [address] [address] [place] [phone] Mitchel Henderson MD [address] [place] [address], [address] [place], [place] [phone] documented as of this encounter Visit Diagnoses Not on filedocumented in this encounter Additional Health Concerns Assessment Noted Time PHQ-9 Depression Total Score: 4 03/01/20 24 8:00 AM EDT documented as of this encounter Care Teams Paper Wood Cutter Relationship Specialty Start Date End Date Mitchel Henderson MD [address] [place] [address], [address] [place] [address] PCP - General Pediatrics 09/18/21 documented as of this encounter
--- OUTSIDE RECORDS SUMMARY | 2025-02-07 13:54 | XMS_ITS | Encounter Summary ---
Author Organization [facility] Address [address] [place] [address] Care Team Providers Care Replenishment Buyer Name Role Phone Herrera Leonela FONTAINE Primary Care Provider [phone] Mitchel Henderson MD Primary Care Provider + Source Comments In the event this information is protected by the Federal Confidentiality of Alcohol and Drug AbusePatient Records regulations: The Federal rules restrict any use of the information to criminally investigate or prosecute any alcohol or drug abuse patient.[facility] Encounter Details Date Type Department Care Team (Late st Contact Info) Description 02/10/2021 Patient Msg Rheumatology [address] [facility] [address] [place], [place] [phone] Rosy Raya MD [address] [place] [address] results Social History Tobacco Use [...] N ot on file 07/29/2020 Data from: https://www.neighborhoodatlas.medicine.[facility]/. Last address used for calculation Not [...] on filedocumented in this encounter Care Teams Replenishment Buyer Relationship Specialty Start Date End Date Leonela Silverman CNP [address] [place] [address] PCP - General Family Medicine 06/21/19 11/29/21 Mitchel Henderson MD [address] [place] [address], [address] [place] [address] PCP - General Internal Medicine 11/30/21 documented as of this encounter
--- OUTSIDE RECORDS SUMMARY | 2025-02-07 13:54 | XMS_ITS | Clinical Summary ---
Author Organization [employer] Address [id number] [address] [place] [address] Care Team Providers Care Javascript Developer Name Role Phone Mitchel Henderson MD Primary Care Provider [phone] Allergies Active Allergy Reactions Criticality Noted Date Comments Atorvastatin muscle cramps Medium 12/10/2024 Bupropion Hcl Rash Low 09/25/2012 Buspirone 07/06/2019 Can't remember Methotrexate Other (See Comments) ,GI Disturbance 09/25/2012 [place] spaced out dizziness Oxycodone 05/28/2020 Tunnel vision Venlafaxine 10/17/2019 Medications etanercept (ENBREL) 50 mg/mL (1 mL) injection Inject 1 mL (50 mg total) under the skin once a week. Active blood sugar diagnostic (glucose blood) strip 1 strip by other route every morning before breakfast. In Vitro strip Active MEN'S MULTI-VITAMIN ORAL Take by mouth in the morning. Active hydroCHLOROthiaz arnel (HYDRODIURIL) 12.5 mg tablet Take 1 tablet (12.5 mg total) by mouth daily. 90 tablet 3 03/01/20 24 Active lisinopriL (PRINIVIL,ZESTRI L) 30 mg tablet Take 1 tablet (30 mg total) by mouth in the morning. 90 tablet 3 03/01/20 24 Active metFORMIN XR (GLUCOPHAGE XR) 500 mg 24 hr tablet Take 1 tablet (500 mg total) by mouth daily with breakfast. 90 tablet 3 03/01/20 24 Active albuterol (PROVENTIL HFA;VENTOLIN HFA) 90 mcg/actuation inhalerIndicatio ns:Chronic bronchitis, unspecified chronic bronchitis type (CMS-HCC) 2 puffs by mouth every 6 hours per wheezing and shortness of breath 54 g 3 03/26/20 24 Active cyclobenzaprine (FLEXERIL) 5 mg tablet Take 1 tablet (5 mg total) by mouth as needed. 11/20/19 25 Active ergocalciferol (DRISDOL) 1,250 mcg (50,000 unit) capsule TAKE 1 CAPSULE BY MOUTH ON MONDAYS AND THURSDAYS FOR 8 WEEKS THEN DECREASE TO ONE WEEKLY THEREAFTER Active leflunomide (ARAVA) 20 mg tablet TAKE 1 TABLET BY MOUTH DAILY WITH FOOD. DO NOT TAKE IF ON ANTIBIOTICS OR . 11/20/19 25 Active varenicline tartrate (CHANTIX BRINDA) 0.5 mg (11)- 1 mg (42) tabletIndication s:Cigarette nicotine dependence without complication Take 0.5 mg one daily on days 1-3 and 0.5 mg twice daily on days 4-7. Then 1 mg twice daily for a total of 12 weeks. 53 tablet 12/11/19 25 Active umeclidinium (INCRUSE ELLIPTA) 62.5 mcg/actuation blister with deviceIndication s:Chronic bronchitis, unspecified chronic bronchitis type (CMS-HCC) Inhale 1 puff in the morning. 30 each 5 02/06/20 25 Active umeclidinium (INCRUSE ELLIPTA) 62.5 mcg/actuation blister with deviceIndication s:Chronic bronchitis, unspecified chronic bronchitis type (CMS-HCC) Inhale 1 puff in the morning. 30 each 6 06/29/20 24 025 Discontin ued(Reord er) Active Problems Problem Noted Date Diagnosed Date Chronic middle ear effusion, bilateral 0 Bilateral hearing loss 09/26/2019 Hypertension COPD (chronic obstructive pulmonary disease) Overview (02/26/2022): scheduled for PFT 05/14/2020 Rheumatoid arthritis Hyperlipidemia Type 2 diabetes mellitus wit hout complication, without long-term current use of insulin Sialadenitis Encounters Date Type Department Care Team Description 02/05/2025 Refill [facility] [address] [facility] 1 [place] [address] Mitchel Henderson MD Chronic bronchitis, unspecified chronic bronchitis type (CMS-HCC) 12/27/2024 Orders Only [facility] [address] [place] [id number] External, Scanning Provider 12/10/2024 10:45 AM EDT Office Visit [facility] [address] [place] [address] Mitchel Henderson MD Rheumatoid arthritis ([facility]) (Primary Dx); Type 2 diabetes mellitus without complication, without long-term current use of insulin ([facility]); Myalgia, multiple sites; Cigarette [...] 1.6 46.5 Started: 08/22/1978 Smokeless Tobacco: Never Tobacco Cessation:Ready [...] How often do you attend yarsanism or mandaeism serv ices? Never 09/25/2022 Do you belong [...] Answer Date Recorded Total Score 4 03/01/2024 [facility] of Occupat ional Health - Occupational [...] Recorded Do you need help finding a [facility] career center and/or a training program? [...] EDT Office Visit [facility] [address] [place] [address] [address] [place] [address] Mitchel Henderson MD [address] [place] [address], [address] [place] [address] Health Maintenance Due Date Last Done Comments Diabetic Ophthalmology Exam 1960 Tobacco Counseling 1960 Adult BMI Follow Up Plan 1978 Diabetic Foot Exam 1978 Zoster (Shingles) Vaccine (1 of 2) 2010 DTaP,Tdap and Td Vaccines (2 - Td or Tdap) 06/02/2022 06/02/2012 COVID-19 Vaccine (4 2023-2 5 season) 2024 06/19/2021, 11/28/2020, 10/31/2020 Depression Screening 03/01/2025 03/01/2024 Influenza Vaccine 04/22/2025 06/09/2021, , 09/04/2018, Additional history exists Adult BMI Screening 12/10/2025 12/10/2024 Tobacco Screening 12/10/2025 12/10/2024 Medical Devices Implanted Type Area Motion Picture Camera Operator Device Identifier Shelf Expiration Date Model / Serial / Lot Anch Sut Kntls Healicoil Rg St - Sna - [id number] Implanted:Qt y: 1 on 05/28/2020 by Curry Pradhan DO at [facility] Yantic Left: Shoulder [employer] 02/05/2023 [id number] / [id number] / [id number] Mesh Srg Clgn Rcnst Scfld Med - Sna - [id number] Implanted:Qt y: 1 on 05/28/2020 by Curry Pradhan DO at [facility] Mesh Left: Shoulder [employer] 10/17/2022 [id number] / [id number] / [id number] Anch Bn 3 W Ascp Dlv Sys - Sna - [id number] Implanted:Qt y: 1 on 05/28/2020 by Curry Pradhan DO at [facility] Other Implant Left: Shoulder [employer] 08/06/2022 [id number] / NA / [id number] Anch Sut Tndn Rgnrt - Sna - [id number] Implanted:Qt y: 1 on 05/28/2020 by Curry Pradhan DO at [facility] Other Implant Left: Shoulder [employer] [id number] 09/28/2022 [id number] / NA / [id number] Ultratape Blue, 38 Implanted:Qt y: 1 on 05/28/2020 by Curry Pradhan DO at [facility] Left: Shoulder [employer] [id number] 02/22/2024 [id number] / [id number] / [id number] Procedures Procedure Name Priority Date/Time Associated Diagnosis Comments MR LUMBAR SPINE WO CONT Routine 12/26/2024 from Last 3 Months Results * MR lumbar spine without contrast (12/26/2024) Anatomical Region Laterality Modality MSK, Neuro, Spine, L-spine, Spine Covera N/A Magnetic Resonance 12/26/2024 us Scanning Provider External IMG MRI ORDERABLES Fi nal Result from Last 3 Months Insurance [employer] [address] Care Teams Javascript Developer Relationship Specialty Start Date End Date Mitchel Henderson MD [address] [place] [address], [address] [place] [address] PCP - General Pediatrics 09/18/21
--- OUTSIDE RECORDS SUMMARY | 2025-02-07 13:54 | XMS_ITS | Encounter Summary ---
Author Organization [employer] Address [id number] [address] [place] [address] Care Team Providers Care Composing Machine Operator Name Role Phone Mitchel Henderson MD Primary Care Provider [phone] Reason for Visit * Reason Comments Med Refill Encounter Details Date Type Department Care Team (Late st Contact Info) Description 03/26/2024 Refill [facility] [address] [place] [address] 1 [place] [address] Mitchel Henderson MD [address] [place] [address], [address] [place], [place] [phone] Chronic bronchitis, unspecified chronic bronchitis type ([facility]) Social History Tobacco Use Types Packs/Day Years Used Date Smoking Tobacco: Every Day Cigarettes 1.6 46.5 Started: 08/1978 Smokeless Tobacco: Never Alcohol Use [...] week 09/25/2022 How often do you attend oriental orthodox or mu-ism serv ices? Never 09/25/2022 Do you belong to any clubs o r organizations such as oriental orthodox groups, unions, fraternal or athletic groups, or [...] Answer Date Recorded Total Score 4 03/01/2024 [facility] of Occupat ional Health - Occupational Stress [...] Do you need help finding a [facility] career center and/or a training program? [...] EDT Office Visit [facility] [address] [place] [address] [address] [place] [address] Mitchel Henderson MD [address] [place] [address], [address] [place], [place] [phone] documented as of this encounter Visit Diagnoses Diagnosis Chronic bronchitis, unspecified chronic bronchitis type (CMS-HCC) documented in this encounter Additional Health Concerns Assessment Noted Time PHQ-9 Depression Total Score: 4 03/01/20 24 8:00 AM EDT documented as of this encounter Care Teams Composing Machine Operator Relationship Specialty Start Date End Date Mitchel Henderson MD [address] [place] [address], [address] [place], [place] [id number] PCP - General Pediatrics 09/18/21 documented as of this encounter
== END 2025-02-07 10:31 | disposition home or self-care (01) ==
LOC: PM 13:50
PROVIDERS: PCP Internal Medicine; Visit Provider Nurse Practitioner
DX: M48.062 Spinal stenosis, lumbar region with neurogenic claudication (principal); M47.816 Spondylosis without myelopathy or radiculopathy, lumbar region; M46.1 Sacroiliitis, not elsewhere classified; Z79.891 Long term (current) use of opiate analgesic
CPT/HCPCS: G0463